=== PATIENT | male | born 1985 | race Caucasian/White ===

== ENCOUNTER 2019-01-22 14:42 | Emergency (ER) | payer OTHER ==
[~2019-01-22] VITALS: Ht 172.7 cm; Wt 72.6 kg
[~2019-01-22 14:42] MED LIST changes: -Esgic Tablet1 EACH PO; -Kristalose20 GM PO; -Lotensin40 MG PO; -Novolog100 UNIT/2 SC; -Roxicodone5 MG PO; -ULTRA-LIGHT RO1 EACH MC; -Zofran8 MG PO
[2019-01-22] MEDS ORDERED: Novolog100 UNIT/2 SC (15:36)
[2019-01-22] MEDS ORDERED: Lotensin40 MG PO (15:37)
[2019-01-22] MEDS ORDERED: Esgic Tablet1 EACH PO (15:39)
[2019-01-22] MEDS ORDERED: ULTRA-LIGHT RO1 EACH MC (16:37)
[2019-01-22] MEDS ORDERED: Roxicodone5 MG PO (16:37)
[2019-01-22] MEDS ORDERED: Kristalose20 GM PO (16:37)
[2019-01-22] MEDS ORDERED: Zofran8 MG PO (16:56)
== END 2019-01-22 16:59 | disposition home or self-care (01) ==
LOC: ER 14:42
DX: S32.592A Other specified fracture of left pubis, initial encounter for closed fracture (principal); V49.9XXA Car occupant (driver) (passenger) injured in unspecified traffic accident, initial encounter; E11.9 Type 2 diabetes mellitus without complications; Z79.4 Long term (current) use of insulin; Z79.899 Other long term (current) drug therapy
CPT/HCPCS: 96374; 96375; 99283-25; J1170; J2405

== ENCOUNTER → 2019-01-22 | Outpatient (CLI) | payer OTHER ==
[~2019-01-22] MED LIST: ACET325 PO; ATOR80; Esgic Tablet1 EACH PO; HYDACE10B; IBUP600 PO; IBUP800 PO; INSDET100 SC; INSDET100 SQ; INSLI100I; INSLI100I SC; INSLIS75I SC; INSN100I; INSUASPI; INSULIN ISOPHANE; KRILL OIL500 MG; Kristalose20 GM PO; LOSA25; Lotensin40 MG PO; Novolog100 UNIT/2 SC; OXYACE5T PO; PENVK500; Roxicodone5 MG PO; ULTRA-LIGHT RO1 EACH MC; Zofran8 MG PO
[2019-01-22 13:38] LABS: BASOPHILS ABSOLUTE AUTO 0.02 K/mm3 (0.00-0.23); BASOPHILS PERCENT AUTO 0 % (0-2); EOSINOPHILS ABSOLUTE AUTO 0.05 K/mm3 (0.00-0.68); EOSINOPHILS PERCENT AUTO 1 % (0-6); Hematocrit 30.6 % (37.0-53.0); IMMATURE GRAN ABSOLUTE AUTO 0.13 K/mm3 (0.00-0.10); IMMATURE GRAN PERCENT AUTO 1 % (0-1); LYMPHOCYTES ABSOLUTE AUTO 1.18 K/mm3 (0.84-5.20); LYMPHOCYTES PERCENT AUTO 13 % (21-46); MONOCYTES ABSOLUTE AUTO 0.47 K/mm3 (0.16-1.47); MONOCYTES PERCENT AUTO 5 % (4-13); Mean Corpuscular HGB 31.5 pg (26.0-34.0); Mean Corpuscular HGB Conc 35.9 g/dL (31.5-36.5); Mean Corpuscular Volume 88 fL (80-100); Mean Platelet Volume 10.5 fL (9.1-12.4); NEUTROPHILS ABSOLUTE AUTO 7.41 K/mm3 (1.96-9.15); NEUTROPHILS PERCENT AUTO 80 % (41-73); Platelet Count 220 K/mm3 (150-400); RDW Standard Deviation 38.5 fL (35.1-46.3); Red Blood Cell Count 3.49 M/mm3 (4.30-5.90); White Blood Cell Count 9.26 K/mm3 (4.00-11.30)
[2019-01-22 13:52] LABS: Albumin, Blood 3.5 g/dL (3.4-5.0); Albumin/Globulin Ratio 0.9 (0.8-1.8); Bilirubin, Total 0.3 mg/dL (0.1-1.0); Bun/Creatinine Ratio 12.9 (12.0-20.0); Calcium, Blood 8.5 mg/dL (8.5-10.1); Creatinine, Blood 1.71 mg/dL (0.60-1.20); Globulin, Blood 3.8 g/dL (2.2-4.0); Potassium, Blood 4.7 mmol/L (3.5-5.5); Total Protein, Blood 7.3 g/dL (6.4-8.2)
== END | disposition home or self-care (01) ==
LOC: LAB SHORT 13:33 → LAB EV 13:33
PROVIDERS: General Practice
DX: E10.9 Type 1 diabetes mellitus without complications (principal)
CPT/HCPCS: 80053; 85025

== ENCOUNTER 2022-07-30 09:17 | Day surgery (SDC) | payer BC ==
[~2022-07-30] VITALS: Ht 172.7 cm; Wt 79.0 kg
[~2022-07-30 09:17] MED LIST changes: +Esgic Tablet1 EACH PO; +Kristalose20 GM PO; +Lotensin40 MG PO; +Novolog100 UNIT/2 SC; +Roxicodone5 MG PO; +ULTRA-LIGHT RO1 EACH MC; +Zofran8 MG PO
[2022-07-30] MEDS ORDERED: AMIT25 PO (09:50)
[2022-07-30] MEDS ORDERED: ALEN70 PO (09:50)
[2022-07-30] MEDS ORDERED: ALLO100 PO (09:50)
[2022-07-30] MEDS ORDERED: EXTRA PAIN REL1 EAC2 PO (09:51)
[2022-07-30] MEDS ORDERED: ATOR20 PO (09:51)
[2022-07-30] MEDS ORDERED: METO50ER PO (09:52)
[2022-07-30] MEDS ORDERED: CALC.25 PO (09:52)
[2022-07-30] MEDS ORDERED: Vitamin D1000 UNI1 PO (09:52)
[2022-07-30] MEDS ORDERED: SILD25T PO (09:52)
--- NOTE | 2022-07-30 14:31 | NUR ---
PT UP TO BR, STATES FEELS GOOD. DISCHARGE REVIEWED WITH PT AND S.O., BOTH VERBALIZE UNDERSTANDING. SALINE LOCK REMOVED WITH CATHETER INTACT. DENIES ANY FURTHER QUESTIONS. PT TO PRIVATE VEHICLE PER W/C WITH ONE STAFF.
== END 2022-07-30 14:30 | disposition home or self-care (01) ==
LOC: MHTC 09:17
DX: I12.0 Hypertensive chronic kidney disease with stage 5 chronic kidney disease or end stage renal disease (principal); N18.6 End stage renal disease; E10.22 Type 1 diabetes mellitus with diabetic chronic kidney disease; Z79.4 Long term (current) use of insulin; E78.5 Hyperlipidemia, unspecified
CPT/HCPCS: 49418; 76937; 93005; 93010; 99152; 99153; C1750; C1769; C1887; C1894; J0690; J1644; J2250; J3010; J7030; J7040; Q9967

== ENCOUNTER → 2023-01-27 | Outpatient (CLI) | payer BC ==
[~2023-01-27] MED LIST changes: +ALEN70 PO; +ALLO100 PO; +AMIT25 PO; +AMLO5 PO; +ATOR20 PO; +BENAZEPRIL HCL40 M1 PO; +CALC.25 PO; +EXTRA PAIN REL1 EAC2 PO; +Lasix40 MG PO; +METO50ER PO; +Rena-Vite Tabl0.8 MG PO; +SILD25T PO; +Vitamin D1000 UNI1 PO
[2023-01-29 09:12] LABS: C DIFFICILE DNA POSITIVE (Negative)
== END ==
LOC: LAB 11:17 → LAB SHORT 11:17
PROVIDERS: Family Medicine
DX: R19.7 Diarrhea, unspecified (principal)
CPT/HCPCS: 87324; 87493

== ENCOUNTER → 2023-01-27 | Outpatient (CLI) | payer BC ==
[~2023-01-27] MED LIST changes: +COLCHICINE0.6 MG PO; +LOSA50 PO
== END | disposition home or self-care (01) ==
LOC: LAB 19:15 → LAB SHORT 19:15
DX: R50.9 Fever, unspecified (principal)
CPT/HCPCS: 87040

== ENCOUNTER 2023-01-28 17:49 | Inpatient (IN) | payer BC ==
[~2023-01-28] VITALS: Ht 172.7 cm; Wt 84.5 kg
[~2023-01-28 17:49] MED LIST changes: -AMLO5 PO; -BENAZEPRIL HCL40 M1 PO; -COLCHICINE0.6 MG PO; -LOSA50 PO; -Lasix40 MG PO; -Rena-Vite Tabl0.8 MG PO
[2023-01-28 18:06] VITALS: BP 138/78
[2023-01-28] MEDS ORDERED: AMLO5 PO (18:19)
[2023-01-28] MEDS ORDERED: Rena-Vite Tabl0.8 MG PO (18:19)
[2023-01-28] MEDS ORDERED: BENAZEPRIL HCL40 M1 PO (18:19)
[2023-01-28] MEDS ORDERED: Lasix40 MG PO (18:21)
[2023-01-28 19:53] LABS: BASOPHILS ABSOLUTE AUTO 0.05 K/mm3 (0.00-0.23); BASOPHILS PERCENT AUTO 0 % (0-2); EOSINOPHILS ABSOLUTE AUTO 0.34 K/mm3 (0.00-0.68); EOSINOPHILS PERCENT AUTO 2 % (0-6); Hematocrit 22.8 % (37.0-53.0); Hemoglobin 7.8 g/dL (13.5-17.5); IMMATURE GRAN ABSOLUTE AUTO 0.13 K/mm3 (0.00-0.10); IMMATURE GRAN PERCENT AUTO 1 % (0-1); LYMPHOCYTES ABSOLUTE AUTO 1.44 K/mm3 (0.84-5.20); LYMPHOCYTES PERCENT AUTO 9 % (21-46); MONOCYTES ABSOLUTE AUTO 1.02 K/mm3 (0.16-1.47); MONOCYTES PERCENT AUTO 6 % (4-13); Mean Corpuscular HGB 31.5 pg (26.0-34.0); Mean Corpuscular HGB Conc 34.2 g/dL (31.5-36.5); Mean Corpuscular Volume 92 fL (80-100); NEUTROPHILS PERCENT AUTO 82 % (41-73); Platelet Count 428 K/mm3 (150-400); RDW Coefficient Variation 11.9 % (11.7-14.2); RDW Standard Deviation 40.2 fL (35.1-46.3); Red Blood Cell Count 2.48 M/mm3 (4.30-5.90); White Blood Cell Count 16.88 K/mm3 (4.00-11.30)
[2023-01-28 20:02] VITALS: BP 148/83
[2023-01-28 21:04] LABS: Albumin, Blood 2.2 g/dL (3.4-5.0); Albumin/Globulin Ratio 0.4 (0.8-1.8); Bilirubin, Total 0.5 mg/dL (0.1-1.0); Calcium, Blood 8.3 mg/dL (8.5-10.1); Globulin, Blood 5.3 g/dL (2.2-4.0); Potassium, Blood 2.8 mmol/L (3.5-5.5); Total Protein, Blood 7.5 g/dL (6.4-8.2)
[2023-01-28 21:05] LABS: Bun/Creatinine Ratio 5.8 (12.0-20.0)
[2023-01-29] VITALS (10 sets, daily range): BP systolic 133–156; BP diastolic 80–97
[2023-01-29 05:35] LABS: BASOPHILS ABSOLUTE AUTO 0.04 K/mm3 (0.00-0.23); BASOPHILS PERCENT AUTO 0 % (0-2); EOSINOPHILS ABSOLUTE AUTO 0.34 K/mm3 (0.00-0.68); EOSINOPHILS PERCENT AUTO 2 % (0-6); Hematocrit 18.8 % (37.0-53.0); Hemoglobin 6.4 g/dL (13.5-17.5); IMMATURE GRAN ABSOLUTE AUTO 0.12 K/mm3 (0.00-0.10); IMMATURE GRAN PERCENT AUTO 1 % (0-1); LYMPHOCYTES ABSOLUTE AUTO 1.35 K/mm3 (0.84-5.20); LYMPHOCYTES PERCENT AUTO 9 % (21-46); MONOCYTES ABSOLUTE AUTO 0.87 K/mm3 (0.16-1.47); MONOCYTES PERCENT AUTO 6 % (4-13); Mean Corpuscular HGB 31.5 pg (26.0-34.0); Mean Corpuscular Volume 93 fL (80-100); NEUTROPHILS ABSOLUTE AUTO 12.65 K/mm3 (1.96-9.15); NEUTROPHILS PERCENT AUTO 82 % (41-73); Platelet Count 399 K/mm3 (150-400); RDW Coefficient Variation 11.9 % (11.7-14.2); RDW Standard Deviation 40.4 fL (35.1-46.3); Red Blood Cell Count 2.03 M/mm3 (4.30-5.90); White Blood Cell Count 15.37 K/mm3 (4.00-11.30)
[2023-01-29 06:15] LABS: Albumin, Blood 1.9 g/dL (3.4-5.0); Albumin/Globulin Ratio 0.4 (0.8-1.8); Bilirubin, Total 0.4 mg/dL (0.1-1.0); Calcium, Blood 7.9 mg/dL (8.5-10.1); Globulin, Blood 4.5 g/dL (2.2-4.0); Potassium, Blood 3.3 mmol/L (3.5-5.5); Total Protein, Blood 6.4 g/dL (6.4-8.2)
[2023-01-29 06:18] LABS: Bun/Creatinine Ratio 5.6 (12.0-20.0); Creatinine, Blood 13.2 mg/dL (0.60-1.20)
--- NOTE | 2023-01-29 18:24 | NUR ---
PD RN TO PT ROOM [id number] AT APPROX 1730 TO CONNECT PT TO NIGHT CCPD TREATMENT. THERAPY TIME: 11:00 HRS FILL: 1500 LAST FILL:500 CYCLES:6 DWELL:90 MIN 1-6L 4.25 1-6L 2.5
[2023-01-29 21:25] LABS: Glucose, Blood 544 mg/dL (70-99)
[2023-01-30 03:59] VITALS: BP 146/82
--- NOTE | 2023-01-30 04:26 | NUR ---
SHIFT SUMMERY. PTS CBGS HAVE BEEN HIGH BUT HE IS NOT WANTING TO USE S/S INSULIN. ONLY WANATING TO USE HIS INSULIN PUMP TO BRING DOWN. CBGS HAVE BEEN COMM ING DOWN BUT VERY SLOWLY. PT ON PERITONIEAL DIALISIS THIS NIGHT. PT APPEARS TO BE VERY TIRED AND SLEEPY. PT HAS NOT HAD A LONG UNINTERUPTED TIME TO SLEEP IN THE HOSPITAL.
[2023-01-30 05:20] LABS: BASOPHILS ABSOLUTE AUTO 0.04 K/mm3 (0.00-0.23); BASOPHILS PERCENT AUTO 0 % (0-2); EOSINOPHILS ABSOLUTE AUTO 0.28 K/mm3 (0.00-0.68); EOSINOPHILS PERCENT AUTO 2 % (0-6); Hematocrit 26.1 % (37.0-53.0); IMMATURE GRAN ABSOLUTE AUTO 0.15 K/mm3 (0.00-0.10); IMMATURE GRAN PERCENT AUTO 1 % (0-1); LYMPHOCYTES ABSOLUTE AUTO 0.91 K/mm3 (0.84-5.20); LYMPHOCYTES PERCENT AUTO 6 % (21-46); MONOCYTES ABSOLUTE AUTO 0.68 K/mm3 (0.16-1.47); MONOCYTES PERCENT AUTO 5 % (4-13); Mean Corpuscular HGB 31.5 pg (26.0-34.0); Mean Corpuscular HGB Conc 34.5 g/dL (31.5-36.5); Mean Corpuscular Volume 91 fL (80-100); Mean Platelet Volume 11.2 fL (9.1-12.4); NEUTROPHILS ABSOLUTE AUTO 12.44 K/mm3 (1.96-9.15); NEUTROPHILS PERCENT AUTO 86 % (41-73); Platelet Count 468 K/mm3 (150-400); RDW Standard Deviation 40.1 fL (35.1-46.3); Red Blood Cell Count 2.86 M/mm3 (4.30-5.90)
[2023-01-30 06:24] LABS: CPK Creatine Kinase 127 U/L (39-308); Ferritin, Serum 804 ng/mL (26-388); Iron Serum 28 ug/dL (65-175); Percent Saturation 16.1 % (20.0-50.0); Total Iron Binding Capacity 174 ug/dL (250-450)
[2023-01-30 06:45] LABS: Albumin, Blood 2.1 g/dL (3.4-5.0); Anion Gap 12 mmol/L (6-16); Blood Urea Nitrogen 69 mg/dL (8-24); Bun/Creatinine Ratio 5.5 (12.0-20.0); CO2, Blood 25 mmol/L (21-32); Calcium, Blood 8.6 mg/dL (8.5-10.1); Chloride, Blood 92 mmol/L (98-108); Glomerular Filtration Rate 5 (60-); Glucose, Blood 463 mg/dL (70-99); Phosphorus, Blood 6.3 mg/dL (2.5-4.9); Potassium, Blood 3.3 mmol/L (3.5-5.5); Sodium, Blood 129 mmol/L (136-145)
[2023-01-30 08:22] VITALS: BP 161/90
--- NOTE | 2023-01-30 13:44 | NUR ---
6928 ASSUMED CARE OF PATIENT. PROGRAM EVALUATION CONSULTANT AT BEDSIDE SETTING UP PATIENTS PERITONEAL DIALYSIS. PT REPORTS THAT HE IS FEELING MUCH BETTER THAN HE DID YESTERDAY. PER WELDING MACHINE OPERATOR/TENDER MONITOR SHOW SR WITH HR OF 84
--- NOTE | 2023-01-30 14:35 | NUR ---
DIALYSIS-PD WENT TO ROOM TO DC TX. PT HAD ALREADY DISCONNECT HIMSELF. ID 6 ML, UF [id number] ML. FLUID CLEAR.
--- NOTE | 2023-01-30 16:01 | NUR ---
SPOKE WITH DR KWONG VIA PHONE TO DISCUSS BLOOD SUGAR OF 446. NO NEW ORDERS AT THIS TIME. DISCUSSED WITH DR KWONG OUTPATIENT C DIFF WITH A NEGATIVE TOX A/B ON 01/27/23.PT AND PATIENTS ASKING IF C DIFF NEEDS ANY FURTHER TREATMENT. PER DR KWONG NO NEW ORDERS NEEDED REGARDING C DIFF RESULTS.
[2023-01-30 18:11] LABS: ANA DIRECT Negative (Negative); ANTI-DNA (DS) AB QN <1 IU/mL (0-9); RNP ANTIBODIES <0.2 AI (0.0-0.9); SJOGREN'S ANTI-SS-A <0.2 AI (0.0-0.9); SJOGREN'S ANTI-SS-B <0.2 AI (0.0-0.9); SMITH ANTIBODIES <0.2 AI (0.0-0.9)
--- NOTE | 2023-01-30 18:29 | NUR ---
PT A&OX4, ANSWERS QUESTIONS APPROPRIATELY. CBGS CONTINUE TO RUN HIGH (300-400S), DOCTOR NOTIFIED AND CHANGED TO BLOOD SUGAR CHECKS TO Q4. GLARGINE ANG HUMALOG GIVEN AT 1130 AND HUMALOG CONTINUES TO BE GIVEN EVERY 4 HOURS. PT REPORTED CHEST PAIN OF 8/10 UPON INHALATION, DR NOTIFIED AND A SMALL DOSE OF OXYCODONE AND 650MG TYELONOL GIVEN. DOCTOR NOTIFIED NURSE AND PT THE PLAN IS TO DISCHARGE TOMORROW LONG THE PTS BLOOD SUGARS ARE CONTROLLED. WILL CONTINUE PLAN OF CARE.
--- NOTE | 2023-01-30 20:35 | NUR ---
PD RN TO PT ROOM AT APPROX 1600 TO DISCONECT CCPD NIGHT TREATMENT, STIRP AND CLEAN THE MACHINE AND THEN SET IT BACK UP AND PRIME THE MACHINE FOR CCPD NIGHT TREATMENT. MACHINE PRIMED AND READY AT APRROX 1700, PT IN SHOWER SO RETURNED AT 1745 TO CONNECT PT TO CCPD NIGHT TREATMENT.
[2023-01-30 20:46] VITALS: BP 151/88
[2023-01-30 20:50] LABS: Glucose, Blood 642 mg/dL (70-99)
[2023-01-30 23:13] LABS: Glucose, Blood 732 mg/dL (70-99)
[2023-01-30 23:46] LABS: Anion Gap 17 mmol/L (6-16); Blood Urea Nitrogen 69 mg/dL (8-24); Bun/Creatinine Ratio 5.8 (12.0-20.0); CO2, Blood 21 mmol/L (21-32); Calcium, Blood 7.9 mg/dL (8.5-10.1); Chloride, Blood 88 mmol/L (98-108); Glomerular Filtration Rate 5 (60-); Potassium, Blood 3.2 mmol/L (3.5-5.5); Sodium, Blood 126 mmol/L (136-145)
[2023-01-31] VITALS (24 sets, daily range): BP systolic 122–170; BP diastolic 75–110
--- NOTE | 2023-01-31 01:04 | NUR ---
PD RN TO PT ROOM AT APPROX 0010 TO DISCONNECT TREATMENT. PT WAS TRANSFERED FROM [place] [id number] TO [id number] AT APPROX 0030 AND IS NOW UNDER THE CARE OF FRAMING MILL OPERATOR LIDIA AVALOS. THE TOTAL FILL VOLUME: 135ML, TOTAL UF: -203, I-DRAIN: 291ML, AVERAGE DWELL 1:21. WHEN I ENTERED THE ROOM TO DISCONNECT TREATMENT WAS ON FILL [address] HARP NOTIFIED AND GAVE VERBAL ORDERS TO DISCONTINUE TREATMENT FOR THE NIGHT AND RESTART WITH TOMMOROWS NIGHTLY TREATMENT.
[2023-01-31 01:38] LABS: Glucose, Blood 739 mg/dL (70-99)
[2023-01-31 02:34] LABS: Glucose, Blood 696 mg/dL (70-99)
[2023-01-31 03:33] LABS: BASOPHILS ABSOLUTE AUTO 0.06 K/mm3 (0.00-0.23); BASOPHILS PERCENT AUTO 1 % (0-2); EOSINOPHILS ABSOLUTE AUTO 0.22 K/mm3 (0.00-0.68); EOSINOPHILS PERCENT AUTO 2 % (0-6); Hematocrit 22.6 % (37.0-53.0); Hemoglobin 7.8 g/dL (13.5-17.5); IMMATURE GRAN ABSOLUTE AUTO 0.12 K/mm3 (0.00-0.10); IMMATURE GRAN PERCENT AUTO 1 % (0-1); LYMPHOCYTES ABSOLUTE AUTO 0.92 K/mm3 (0.84-5.20); LYMPHOCYTES PERCENT AUTO 8 % (21-46); MONOCYTES ABSOLUTE AUTO 0.75 K/mm3 (0.16-1.47); MONOCYTES PERCENT AUTO 7 % (4-13); Mean Corpuscular HGB 31.2 pg (26.0-34.0); Mean Corpuscular HGB Conc 34.5 g/dL (31.5-36.5); Mean Corpuscular Volume 90 fL (80-100); NEUTROPHILS ABSOLUTE AUTO 8.88 K/mm3 (1.96-9.15); NEUTROPHILS PERCENT AUTO 81 % (41-73); Platelet Count 416 K/mm3 (150-400); RDW Standard Deviation 39.4 fL (35.1-46.3); White Blood Cell Count 10.95 K/mm3 (4.00-11.30)
[2023-01-31 04:14] LABS: Albumin, Blood 1.8 g/dL (3.4-5.0); Anion Gap 12 mmol/L (6-16); Blood Urea Nitrogen 70 mg/dL (8-24); Bun/Creatinine Ratio 5.7 (12.0-20.0); CO2, Blood 25 mmol/L (21-32); Calcium, Blood 7.3 mg/dL (8.5-10.1); Chloride, Blood 90 mmol/L (98-108); Glomerular Filtration Rate 5 (60-); Glucose, Blood 619 mg/dL (70-99); Phosphorus, Blood 5.5 mg/dL (2.5-4.9); Potassium, Blood 3.2 mmol/L (3.5-5.5); Sodium, Blood 127 mmol/L (136-145)
[2023-01-31 05:03] LABS: Glucose, Blood 577 mg/dL (70-99)
--- NOTE | 2023-01-31 05:28 | NUR ---
UPDATE CALLED DR SHAH ABOUT AM LABS, NO NEW ORDERS AT THIS TIME.
--- NOTE | 2023-01-31 05:28 | NUR ---
SHIFT SUMMARY PT HAS BEEN RESTING QUIETLY SINCE TRANSFER. NO NEW COMPLAINTS OF PAIN, SOB, OR NAUSEA FROM PT. INSULIN GTT TITRATED T/O NIGHT. SPO2 >92% ON RA;MAP <65; NSR.
[2023-01-31 09:12] LABS: Bun/Creatinine Ratio 5.8 (12.0-20.0); Creatinine, Blood 12.4 mg/dL (0.60-1.20); Potassium, Blood 3.1 mmol/L (3.5-5.5)
--- NOTE | 2023-01-31 11:44 | NUR ---
REASSESSMENT PT HAS BEEN RESTING IN BED OR IN THE CHAIR THROUGHOUT THE MORNING. INSULIN GTT INFUSING AT 4 UN/HR AND HAS NOT NEEDED TITRATION GLUCOSE IS DECREASING AT AN APPROPRIATE RATE. DR. CORTEZ EVALUATED PT AT THE BEDSIDE AND PLAN IS TO START LONG ACTING INSULIN WELL SOME CARB COVERAGE. PT'S IS ALERT AND ORIENTED. RESPONSES WERE A LITTLE DELAYED THIS MORNING, BUT AFTER BREAKFAST PT HAS BEEN QUICKER TO RESPOND. SR, BP STABLE. RA, CLEAR LUNGS, VOIDING INDEPENDENTLY. CONTINUING TO MONITOR.
[2023-01-31 13:00] LABS: Bun/Creatinine Ratio 5.8 (12.0-20.0); Calcium, Blood 7.9 mg/dL (8.5-10.1); Creatinine, Blood 12.5 mg/dL (0.60-1.20); Potassium, Blood 3.1 mmol/L (3.5-5.5)
--- NOTE | 2023-01-31 17:00 | NUR ---
PD RN TO PT RM ICU13 AT APPRX 1615 TO CONENCT CCPD NIGHT TX. BEDSIDE RN SUSHIL WAS IN ROOM AND SO WAS CONTROLS DESIGNER DR. HARP. THEY WERE DISCUSSING THE PLAN GOING FOREWARD WITH THE PT AND HIS . PT SITTING IN CHAIR AT BEDSIDE. DISCUSSION OF POSSIBLE DOWNGRADING TO MED FLOOR STATUS AND A POTENTIAL TRANSFER TO MED FLOOR. I DISCUSSED THE POSSIBLITY WITH THE BEDSIDE RN SUSHIL AND SHE SAID THAT THERE ARE NO SURRENT PLANS TO MOVE HIM JUST YET AND THAT THEY ARE NOT IN NEED OF THE BED/ROOM AT THE MOMENT SO THEY MAY BE ABLE TO KEEP HIM HERE OVER NIGHT. WITH HIS HIGH CBG AND LOW K+ LABS THIS MAY BE A GOOD OPTION IT IS. MACHINE HOOKED UP AND FINISHING PRIMING AT 1645. PT CONNECTED TO TREATMENT AT 1700 AND INITIAL DRAIN STARTED. STICKING AROUND TO ENSURE INITIAL DRAIN COMPLETES AND FILL STARTS WITH NO ALARMS.
--- NOTE | 2023-01-31 17:31 | NUR ---
SHIFT SUMMARY PT WAS TITRATED OFF THE INSULIN GTT THIS AFTERNOON AFTER RECEIVING LONG ACTING INSULIN. HE IS EATING DINNER CURRENTLY AND DIALYSIS NURSE CONNECTED HIM TO HIS PD. DR. HARP CAME BY AND SPOKE WITH PT AND HIS . PT HAS REMAINED ALERT AND ORIENTED. LUNGS ARE CLEAR, RA, SR, BP STABLE. GETTING UP TO BR WITH JUST LINE MANAGEMENT. CONTINUING TO MONITOR.
--- NOTE | 2023-01-31 20:11 | NUR ---
PATIENT SLEEPING IN RECLINER CHAIR, AWAKENS TO SLIGHT STIMULI. A&O X3, REQUESTING TO STAY IN CHAIR AT THIS TIME. PD CONNECTED AND RUNNING. INSULIN DRIP REMAINS OFF AT THIS TIME. PATIENTS S/O (RASHEDE) AT BEDSIDE PROVIDING GOOD SUPPORT.
--- NOTE | 2023-01-31 21:05 | NUR ---
LIDIA CHAR FILTER TANK TENDER NOTIFIED OF INCREASED GLUCOSE THIS EVENING. COVERED WITH LOW SLIDING SCALE PER ORDER AND WILL RECHECK IN 1 HR TO SEE IF IT CONTINUES TO RISE.
--- NOTE | 2023-01-31 22:11 | NUR ---
LIDIA ASSISTANT CASE MANAGER NOTIFIED OF GLUCOSE 449. ONE TIME DOSE OF REG INSULIN 6 UNITS IV X1 THEN RECHECK GLUCOSE AT 0100
[2023-02-01] VITALS (16 sets, daily range): BP systolic 103–153; BP diastolic 74–100
[2023-02-01 01:33] LABS: Glucose, Blood 545 mg/dL (70-99)
--- NOTE | 2023-02-01 01:38 | NUR ---
DOCTOR ALYSSA NOTIFIED OF REPEAT GLUCOSE OF 545 PER LAB DRAW. RESTART INSULIN DRIP UNTIL GLUCOSE LESS THAN 150
[2023-02-01 03:15] LABS: Hematocrit 25.4 % (37.0-53.0); Hemoglobin 8.7 g/dL (13.5-17.5); Mean Corpuscular HGB 31.6 pg (26.0-34.0); Mean Corpuscular HGB Conc 34.3 g/dL (31.5-36.5); Mean Corpuscular Volume 92 fL (80-100); Mean Platelet Volume 10.8 fL (9.1-12.4); Platelet Count 452 K/mm3 (150-400); RDW Coefficient Variation 12.2 % (11.7-14.2); RDW Standard Deviation 40.7 fL (35.1-46.3); Red Blood Cell Count 2.75 M/mm3 (4.30-5.90); White Blood Cell Count 9.72 K/mm3 (4.00-11.30)
[2023-02-01 03:47] LABS: Albumin, Blood 1.9 g/dL (3.4-5.0); Anion Gap 13 mmol/L (6-16); Blood Urea Nitrogen 68 mg/dL (8-24); Bun/Creatinine Ratio 5.6 (12.0-20.0); CO2, Blood 24 mmol/L (21-32); Calcium, Blood 7.6 mg/dL (8.5-10.1); Chloride, Blood 94 mmol/L (98-108); Glomerular Filtration Rate 5 (60-); Glucose, Blood 596 mg/dL (70-99); Phosphorus, Blood 5.5 mg/dL (2.5-4.9); Potassium, Blood 3.2 mmol/L (3.5-5.5); Sodium, Blood 131 mmol/L (136-145)
--- NOTE | 2023-02-01 05:00 | NUR ---
DOCTOR LOYD NOTIFIED OF K+ LEVEL THIS AM AND THAT DUE TO GLUCOSE OVER 500 RESTARTING INSULIN DRIP. PLAN TO HAVE SCHEDULED PO KCL NO NEED FOR ADDITIONAL KCL AT THIS TIME
--- NOTE | 2023-02-01 05:46 | NUR ---
SUMMARY PATIENT SLEEPING IN RECLINER CHAIR T/O NIGHT. AWAKENS EASILY, APPEARS TO FALL BACK TO SLEEP WHEN UNDISTURBED. PERITONEAL DIALYSIS RUNNING T/O NIGHT. INSULIN DRIP RESTARTED DUE TO GLUCOSE ABOVE 500 AND RISING. CURRENTLY AT 8 UNITS/HR. VSS T/O NIGHT. NO C/O CHEST PAIN AT THIS TIME
--- NOTE | 2023-02-01 07:00 | NUR ---
ASSUME CARE: I have assumed care of this patient.
--- NOTE | 2023-02-01 08:45 | NUR ---
DIALYSIS NOTE CCPD TX COMPLETED PRESCRIBED. IDRAIN 10, TUF 679, AVG DWELL 1:28. PT REPORTS HE TOLERATED WELL, NO ALARMS DURING NIGHT. DRSG CHANGE COMPLETED. EXIT SITE PERFECT CLASSIFICATION. TRANSFER SET CLOSED, CAPED AND SECURED.
--- NOTE | 2023-02-01 14:02 | NUR ---
PROVIDER UPDATE: Dr Ojeda called and updated on pt status. She instructs pt to turn up Dexcom to 1.2 units. RN visualized pt changing Dexcom device. Telephone order for status change.
--- NOTE | 2023-02-01 16:14 | NUR ---
DEXCOM: Pt states he believes his Dexcom delivery patch is "not right". He has changed patch.
[2023-02-01 18:08] LABS: ANTIMYELOPEROXIDASE (MPO) ABS <0.2 units (0.0-0.9); ANTIPROTEINASE 3 (PR-3) ABS <0.2 units (0.0-0.9); ATYPICAL PANCA <1:20 titer (Neg:<1:20); CYTOPLASMIC (C-ANCA) <1:20 titer (Neg:<1:20); PERINUCLEAR (P-ANCA) <1:20 titer (Neg:<1:20)
--- NOTE | 2023-02-01 18:13 | NUR ---
SHIFT/TRANSFER SUMMARY: Pt up independantly today. He was transitioned from insulin drip to his DEXCOM. After replacing sensor his blood sugar responded well. Pt denies any complaints of pain. Voiding independantly. He declined a shower this afternoon.
--- NOTE | 2023-02-01 19:08 | NUR ---
pf rn to pt rm icu 13 to collect cycler machine at approx 1800. Pt transfered to pcu16 and cycler macine set up at bedside. photoengraving machine operator/tender and ready to connect at 1900. pt conencted per protocol and orders.
--- NOTE | 2023-02-01 22:33 | NUR ---
UPDATE PT 1999 CBG 442; THIS RN NOTIFIED RESIDENT. NEW ORDERS FOR MEDIUM SLIDING SCALE. COVERAGE PROVIDED. PT DENIES SIGNS AND SX. PT A&0. NO CHANGES TO PT CONDITION. 2199 CBG > 500; HOSPITALIST NOTIFIED BY INJECTION MOLDING MACHINE TENDER. NEW ORDERS FOR HIGH SLIDING SCALE, 25 U OF LANTUS NOW, AND CONTINUATION OF Q2 CBG CHECKS W/Q4 COVERAGE INDICATED UNTIL CBG <250 AFTER CBG <250 PROVIDE ACHS COVERAGE.
[2023-02-01 22:54] LABS: Glucose, Blood 613 mg/dL (70-99)
[2023-02-02] VITALS (9 sets, daily range): BP systolic 101–134; BP diastolic 58–80
[2023-02-02 00:26] LABS: Glucose, Blood 554 mg/dL (70-99)
--- NOTE | 2023-02-02 01:26 | NUR ---
pd rn to pt rm pcu 16 at approx 0030am to disconnect ccpd night treatment. receieved a call at approx 0011am that this pt was being transfered to icu 09 due to uncontrolled cbg. pt disconnected per protocol and cycler cmachine stripped downa nd cleaned. contacted Dr. Carrion at approx 1300 am to see what he wanted to be done and I was informed that we could call it a night and restart with tomorrow evenings treatment. total uf was 138ml and total idrain was 152 ml. time of disconnect was 0030am.
--- NOTE | 2023-02-02 01:33 | NUR ---
SUMMARY AND TRANSFER NOTE PT REMAINS A&O X4. VSS. PT UP IN ROOM AND ANSWERING QUESTIONS APPROPRIATELY. CBG'S HIGH AND CONTINUED TO INCREASE; SEE PREVIOUS NURSING NOTES. INSULIN ADMINSTERED PER EMAR AND PER NEW ORDERS FROM HOSPITALIST. CBG REMAINED ELEVATED, PROVIDER NOTIFIED. NEW ORDERS FOR TRANSFER TO ICU. NO CHANGES IN PT CONDITION W/ELEVATED CBG. PT ONLY REPORTS "HAVING A DRY MOUTH" AND SLIGHT DECREASE IN VOIDING. PT REPORTS 1 VOID DURING THIS SHIFT. PT ON PD AT BEDSIDE; BEFORE TRANSFER DIALYSIS NURSE NOTIFIED AND IN TO DISCONNECT PT. PT GATHERED PERSONAL BELONGINGS AND ABLE TO SAFELY AMBULATE W/THIS RN TO ICU AROUND 0100. REPORT GIVEN TO ALISHA CHEEK.
--- NOTE | 2023-02-02 02:44 | NUR ---
BG CONTINUING TO DROP AFTER PD COMPLETED. DR SHAH NOTIFIED AND RN GIVEN ORDER TO STOP PATIENT'S BASAL RATE ON INSULIN PUMP.
[2023-02-02 03:52] LABS: Hematocrit 24.9 % (37.0-53.0); Hemoglobin 8.4 g/dL (13.5-17.5); Mean Corpuscular HGB 31.2 pg (26.0-34.0); Mean Corpuscular HGB Conc 33.7 g/dL (31.5-36.5); Mean Corpuscular Volume 93 fL (80-100); Mean Platelet Volume 10.7 fL (9.1-12.4); Platelet Count 460 K/mm3 (150-400); RDW Coefficient Variation 12.6 % (11.7-14.2); RDW Standard Deviation 41.2 fL (35.1-46.3); Red Blood Cell Count 2.69 M/mm3 (4.30-5.90); White Blood Cell Count 13.51 K/mm3 (4.00-11.30)
[2023-02-02 04:51] LABS: Albumin, Blood 1.9 g/dL (3.4-5.0); Anion Gap 11 mmol/L (6-16); Blood Urea Nitrogen 86 mg/dL (8-24); Bun/Creatinine Ratio 6.8 (12.0-20.0); CO2, Blood 22 mmol/L (21-32); Chloride, Blood 102 mmol/L (98-108); Glomerular Filtration Rate 5 (60-); Glucose, Blood 221 mg/dL (70-99); Potassium, Blood 3.7 mmol/L (3.5-5.5); Sodium, Blood 135 mmol/L (136-145)
--- NOTE | 2023-02-02 06:21 | NUR ---
PATIENT AOX4. FOLLOWS COMMANDS AND MOVES ALL EXTREMITIES. SR WITH STABLE BP. ROOM AIR. BG BEGAN TO DROP QUICKLY AFTER PATIENT TRANSFERRED TO ICU AND PD STOPPED. PATIENT HAD RECEIVED 25U LANTUS AND 15U HUMALOG PRIOR TO HAVING PD STOPPED. BG CHECKED HOURLY AND PATIENTS INSULIN PUMP TURNED OFF. BG STABILIZED BETWEEN 160-190.
--- NOTE | 2023-02-02 11:39 | NUR ---
SHIFT ASSESSMENT PT A&OX4. INDEPENDENT IN ROOM. VSS. GLUCOSE STABILIZED, TRANSITIONING PT TO DAILY HOME REGIMEN. PT NOW PCU STATUS, AWAITING A ROOM.
--- NOTE | 2023-02-02 18:03 | NUR ---
SHIFT SUMMARY PT REMAINS A&OX4. TOLERATING PO INTAKE WELL. GLUCOSE REMAINS <250 c PRANDIAL COVERAGE AND PTS HOME PUMP. PD DIALYSIS SCHEDULED FOR THIS EVENING. NO OTHER ACUTE CHANGES NOTED.
--- NOTE | 2023-02-02 19:25 | NUR ---
DIALYSIS: PD NOTE Patient is alert and oriented x4. Dialysis cycler set-up per orders using aseptic technique. Patient has no complaints of dyspnea or abdominaal pain. No edema noted. Patient to run 6 hrs with 5 exchanges of 1500 ml and a last fill of 500 ml. Dwell time of 52 mins. PD catheter dressing changed with no signs or symptoms of infection noted. Patient connected to cycler and treatment started and running without problems. Report given to primary RN.
[2023-02-03 00:03] VITALS: BP 150/87
[2023-02-03 03:24] VITALS: BP 117/90
[2023-02-03 03:53] LABS: Hematocrit 27.5 % (37.0-53.0); Hemoglobin 9.1 g/dL (13.5-17.5); Mean Corpuscular HGB 31.3 pg (26.0-34.0); Mean Corpuscular HGB Conc 33.1 g/dL (31.5-36.5); Mean Corpuscular Volume 95 fL (80-100); Mean Platelet Volume 10.8 fL (9.1-12.4); Platelet Count 477 K/mm3 (150-400); RDW Coefficient Variation 12.9 % (11.7-14.2); RDW Standard Deviation 43.5 fL (35.1-46.3); Red Blood Cell Count 2.91 M/mm3 (4.30-5.90); White Blood Cell Count 14.31 K/mm3 (4.00-11.30)
[2023-02-03 05:04] LABS: Anion Gap 11 mmol/L (6-16); Blood Urea Nitrogen 91 mg/dL (8-24); Bun/Creatinine Ratio 7.3 (12.0-20.0); CO2, Blood 22 mmol/L (21-32); Calcium, Blood 8.4 mg/dL (8.5-10.1); Chloride, Blood 103 mmol/L (98-108); Glomerular Filtration Rate 5 (60-); Glucose, Blood 141 mg/dL (70-99); Phosphorus, Blood 5.7 mg/dL (2.5-4.9); Potassium, Blood 3.7 mmol/L (3.5-5.5); Sodium, Blood 136 mmol/L (136-145)
--- NOTE | 2023-02-03 06:22 | NUR ---
PATIENT AOX4. SR WITH STABLE BP. ROOM AIR. ON PERITONEAL DIALYSIS OVERNIGHT, BG UNDER CONTROL WITH INSULIN PUMP.
[2023-02-03 08:07] VITALS: BP 107/64
--- NOTE | 2023-02-03 10:05 | NUR ---
DIALYSIS NOTE CCPD TX COMPLETED PRESCRIBED. IDRAIN 3, LAST MANUAL DRAIN 432, TUF NEGATIVE 132, AVG DWELL 50 MIN. PT REPORTS HE TOLERATED WELL, NO ALARMS DURING NIGHT. TRANSFER SET CLOSED, CAPED AND SECURED.
[2023-02-03] MEDS ORDERED: COLCHICINE0.6 MG PO (12:37)
[2023-02-03] MEDS ORDERED: LOSA50 PO (12:38)
--- NOTE | 2023-02-03 13:25 | NUR ---
DISCHARGE PT VERBALIZED UNDERSTANDING OF DISCHARGE INSTRUCTIONS AND FOLLOW UP APPOINTMENTS. IV DC'D. PT WALKED OUT OF THE ICU TO RIDE HOME AT 1320. ALL PT BELONGINGS TAKEN HOME WITH PT.
--- NOTE | 2023-02-04 00:54 | NUR ---
Late note 01/29/23 pt alert and oriented x 4, pts at bedside. lungs clear to acultation, bowel tones x 4. pt on peritoneal dialisis in his room pt has a insulin pump and prefers to use his pump to corrected CBGs . Skin intact pt able to ambulate independantly. at 01/2023 at 0650 am critical lab called for creatinin 12.[address] Parker. No new orders given.
== END 2023-02-03 13:20 | disposition home or self-care (01) | DRG 682 ==
LOC: MEDS 17:49 → ICUW 01-29 15:43 → MEDS 01-29 15:43 → ICUW 01-31 00:26 → PCU 02-01 18:43 → ICUW 02-01 23:50
PROVIDERS: Hospitalist; Internal Medicine; ADMIT Family Medicine
PROC: 30233N1 Transfusion of Nonautologous Red Blood Cells into Peripheral Vein, Percutaneous Approach (ICD-10-PCS; principal; 2023-01-29)
DX: I12.0 Hypertensive chronic kidney disease with stage 5 chronic kidney disease or end stage renal disease (principal); N18.6 End stage renal disease; D62 Acute posthemorrhagic anemia; I30.8 Other forms of acute pericarditis; E10.22 Type 1 diabetes mellitus with diabetic chronic kidney disease; E78.5 Hyperlipidemia, unspecified; J45.909 Unspecified asthma, uncomplicated; E10.3599 Type 1 diabetes mellitus with proliferative diabetic retinopathy without macular edema, unspecified eye; E10.40 Type 1 diabetes mellitus with diabetic neuropathy, unspecified; K75.9 Inflammatory liver disease, unspecified; F45.8 Other somatoform disorders; M81.0 Age-related osteoporosis without current pathological fracture; E10.65 Type 1 diabetes mellitus with hyperglycemia; G43.909 Migraine, unspecified, not intractable, without status migrainosus; E86.9 Volume depletion, unspecified; E87.6 Hypokalemia; D63.1 Anemia in chronic kidney disease; Z98.890 Other specified postprocedural states; Z98.49 Cataract extraction status, unspecified eye; Z99.2 Dependence on renal dialysis; Z96.41 Presence of insulin pump (external) (internal); Z88.8 Allergy status to other drugs, medicaments and biological substances; Z79.4 Long term (current) use of insulin; Z79.82 Long term (current) use of aspirin; Z79.899 Other long term (current) drug therapy
CPT/HCPCS: 36415; 36430; 80048; 80053; 80069; 82550; 82728; 82947; 83516; 83520; 83540; 83550; 84484; 85025; 85027; 86037; 86225; 86235; 86430; 86850; 86900; 86901; 86923; 87040; 93005; 93010; 93306; 96374; 96376; A9270; G0378; J1815; J2916; J3480; J7050; P9016; Q5106

== ENCOUNTER 2023-02-16 18:08 | Inpatient (IN) | payer BC ==
[~2023-02-16] VITALS: Ht 172.7 cm; Wt 82.6 kg
[~2023-02-16 18:08] MED LIST changes: +AMLO5 PO; +BENAZEPRIL HCL40 M1 PO; +COLCHICINE0.6 MG PO; +LOSA50 PO; +Lasix40 MG PO; +Rena-Vite Tabl0.8 MG PO
[2023-02-16 19:46] LABS: Albumin, Blood 1.8 g/dL (3.4-5.0); Albumin/Globulin Ratio 0.4 (0.8-1.8); Bilirubin, Total 0.7 mg/dL (0.1-1.0); Calcium, Blood 7.6 mg/dL (8.5-10.1); Creatinine, Blood 11.7 mg/dL (0.60-1.20); Globulin, Blood 4.9 g/dL (2.2-4.0); Potassium, Blood 6.1 mmol/L (3.5-5.5); Total Protein, Blood 6.7 g/dL (6.4-8.2)
[2023-02-16 19:55] VITALS: BP 179/103
--- NOTE | 2023-02-16 19:56 | NUR ---
DIALYSIS CONSULT ON CHART FOR DR BRITO. DR HARP COVERING AND AWARE. ORDERS GIVEN FOR OVERNIGHT CCPD TONIGHT. PT ADMITTED TO PCU 4. PT SITTING AT EDGE OF BED IN NO ACUTE DISTRESS. AT BEDSIDE. PT REPORTS EFFLUENT HAS BEEN CLEAR TO DATE AND ABD DISCOMFORT IS R/T PANCREATITIS. CYCLER STRUNG, PRIMED AND PROGRAMMED PER ORDERS. THERAPY STARTED WHEN PRIME COMPLETE. PT MONITORED THROUGH FILL #1 WITH NO REPORT OF DISCOMFORT. EXIT SITE CARE DONE WITH NEW STERILE DRESSING APPLIED WITH STRAIN RELIEFS. EXIT SITE CLEAR, DRY, TIGHT. PCU STAFF AWARE OF OVERNIGHT CCPD IN PROGRESS.
[2023-02-16 21:58] VITALS: BP 175/99
[2023-02-16 22:48] VITALS: BP 171/108
[2023-02-17 00:40] VITALS: BP 177/100
[2023-02-17 01:49] VITALS: BP 175/94
[2023-02-17 03:17] VITALS: BP 156/92
[2023-02-17 04:06] LABS: BASOPHILS ABSOLUTE AUTO 0.03 K/mm3 (0.00-0.23); BASOPHILS PERCENT AUTO 1 % (0-2); EOSINOPHILS ABSOLUTE AUTO 0.07 K/mm3 (0.00-0.68); EOSINOPHILS PERCENT AUTO 1 % (0-6); Hematocrit 26.1 % (37.0-53.0); Hemoglobin 8.8 g/dL (13.5-17.5); IMMATURE GRAN ABSOLUTE AUTO 0.07 K/mm3 (0.00-0.10); IMMATURE GRAN PERCENT AUTO 1 % (0-1); LYMPHOCYTES PERCENT AUTO 7 % (21-46); MONOCYTES ABSOLUTE AUTO 0.33 K/mm3 (0.16-1.47); MONOCYTES PERCENT AUTO 6 % (4-13); Mean Corpuscular HGB 30.7 pg (26.0-34.0); Mean Corpuscular HGB Conc 33.7 g/dL (31.5-36.5); Mean Corpuscular Volume 91 fL (80-100); Mean Platelet Volume 11.3 fL (9.1-12.4); NEUTROPHILS ABSOLUTE AUTO 4.57 K/mm3 (1.96-9.15); NEUTROPHILS PERCENT AUTO 84 % (41-73); Platelet Count 261 K/mm3 (150-400); RDW Coefficient Variation 13.2 % (11.7-14.2); RDW Standard Deviation 43.5 fL (35.1-46.3); Red Blood Cell Count 2.87 M/mm3 (4.30-5.90); White Blood Cell Count 5.47 K/mm3 (4.00-11.30)
[2023-02-17 05:13] LABS: C-REACTIVE PROTEIN, EXT RANGE 10.7 mg/dL (0.000-0.300); Magnesium, Blood 1.3 mg/dL (1.6-2.4)
[2023-02-17 05:14] LABS: Percent Saturation 64.6 % (20.0-50.0)
[2023-02-17 05:16] LABS: Albumin, Blood 1.7 g/dL (3.4-5.0); Albumin/Globulin Ratio 0.4 (0.8-1.8); Bilirubin, Total 0.8 mg/dL (0.1-1.0); Bun/Creatinine Ratio 6.8 (12.0-20.0); Calcium, Blood 7.3 mg/dL (8.5-10.1); Creatinine, Blood 11.2 mg/dL (0.60-1.20); Globulin, Blood 4.7 g/dL (2.2-4.0); Phosphorus, Blood 5.9 mg/dL (2.5-4.9); Total Protein, Blood 6.4 g/dL (6.4-8.2)
--- NOTE | 2023-02-17 05:59 | NUR ---
SHIFT SUMMARY PT IS A/Ox4 AND COOPERATIVE WITH CARE PROVIDED BY MEMBERS OF STAFF. ANSWERS QUESTIONS APPROPRIATELY AND ABLE TO MAKE HIS NEEDS KNOWN. CARDIAC GARCIA, PT REMAINS IN SR-ST 80-100'S WITH NO REPORTS OF CP OR PRESSURE T/O THE SHIFT. SBP WAS FAILRY HYPERTENSIVE WITH SBP RANGING 160-170'S. PRN HYDRALAZINE GIVEN WHICH PAIRED WITH PERITONEAL DIALYSIS REDUCED HIS SBP TO 150'S. RESPIRATORY GARCIA, MAINTAINS SPO2 >95%, REPORT SOME SOB DURING PD THIS PM, BUT SINCE RESOLVED AFTER TREATMENT WAS FINISHED. SOME RIGHT SIDED ABD TENDERNESS WELL GENERAL SORENESS REPORTED. PAIN MANAGED ORDERED VIA EMAR. SAID ABOVE, PT IS ON PD, BUT IS STILL ABLE TO MAKE URINE. PT REMAINS IN CONTACT ISO FOR HX OF C.DIFF. STOOL SAMPLE STILL NEEDED FOR R/O. INTERMITTENT EPISODES OF NAUSEA/VOMITING AT THE START OF SHIFT, RESPONDED WELL TO ORDERED ANTIEMETICS. NO NEW ORDERS AT THIS TIME, WILL REPORT TO ONCOMING RN. KAYLAH RENDON OF THIS NOTE
--- NOTE | 2023-02-17 07:30 | NUR ---
DIALYSIS NOTE CCPD TX COMPLETED PRESCRIBED, IDRAIN 275, TUF 63, AVG DWELL 40, LOST DWELL 2:02. PT REPORTS HE TOLERATED TX WELL DURING NIGHT AND DENIES ANY ALARMS. DISCUEESD PLAN FO RPT TO START HD SOON PERMCATH PLACED. PT AWARE OF PLAN AND PENDING CONSULT WITH IR FOR TUNNELED CVC. REPORT GIVEN TO BEDSIDE RNASHLEIGH AND WINIFRED CASTELLANOS RN
[2023-02-17 08:18] VITALS: BP 158/93
[2023-02-17 12:16] VITALS: BP 160/88
--- NOTE | 2023-02-17 13:44 | NUR ---
RN/ DAY SHIFT SUMMARY MORNING SHIFT REPORT RECIEVED DURING BEDSIDE GREETING WITH THE PATIENT. MEDICATION PASS WAS SUCCESSFULLY COMPLETED WITH THE ACCEPTION OF THE HEP BEING HELD FOR A POSSIBLE PROCEDURE. THE PATIENT SEEMS TO BE VERY TIRED AND HAS REPORTED MUSCULAR PAIN THROUGHOUT HIS WHOLE BODY. HE HAS TAKEN TYLENOL AND HIS PAIN IS MANAGED WELL ENOUGH. HE HAS RECIEVED BUMEX AND METACLOPROMIDE WHICH HAS AIDED IN HIS DISCOMFORT. HE IS SLIGHTLY PALE IN APPEARENCE BUT MENTIONS THAT HE STILL HAS DISCOMFORT IN HIS CHEST FROM THE PERICARDITIS THAT HE HAS RECENTLY BEEN DIAGNOSED WITH. CONTINUE TO MONITOR.
[2023-02-17 20:29] LABS: C DIFFICILE DNA Duplicate (Negative)
[2023-02-17 21:05] VITALS: BP 161/82
[2023-02-18] VITALS (20 sets, daily range): BP systolic 131–177; BP diastolic 60–122
--- NOTE | 2023-02-18 05:52 | NUR ---
SHIFT SUMMARY ASSUMED CARE OF PT AT 1900. PT IS A/OX4. HEART SOUNDS REGULAR. PT HAS 3+ EDEMA IN LOWER EXTREMIES. LUNG SOUNDS HAD FINE CRACKELS AT THE START OF SHIFT. BY THE END OF THE NOC PT NEEDED 4L NC WHILE SLEEPING DUE TO DESATURATION TO 83% EVEN WHILE AWAKE. PT DENIES SOB. CRACKLES IN LUNGS WERE WORSE THIS AM AT 0400. PT WAS INDEPENDNET OT BATHROOM. STILLH AVING RUNNY STOOL. PT SKIN IS JAUNDICED. PT C/O PAIN T/O THE NOC. FENTYAL DID NOT TOUCH PAIN FOR LONG. HOSPITALIST NOTIFIED AND REVEIWED CHART AND ORDERED PO PAIN MEDICATIONS, WHICH HELPED THE PT SLIGHTLY. PT DID NOT SLEEP AT ALL DURING THE NOC AND WAS VERY UNCOMFORTABLE. PT HOPES TO GET PERSCRIPTION FOR RESTLESS LEGS TODAY.
--- NOTE | 2023-02-18 18:33 | NUR ---
RN/ DAY SHIFT SUMMARY MORNING REPORT RECEIVED DURING GREETING AT BEDSIDE WITH PATIENT. ASSESSMENT AND MEDICATION PASS COMPLETED WITHOUT COMPLICATION. THE PATIENT THEN WHENT TO HEMODYALISIS AND WAS THERE FOR MOST OF THE DAY. 2400 WAS PULLED OUT DURING HEMODIALISIS. THE PATIENT DEMONSTATES DESAT DURING VITALS ASSESSMENT UPON RETURNING FROM DIALYSIS HE WAS PLACED ON 2 LITERS OF O2 AND HAS RETURNED TO ROOM AIR . CONTINUE TO MONITOR.
[2023-02-18 23:09] LABS: HBSAG SCREEN Negative (Negative); HCV AB Non Reactive (Non Reactive); HEP B CORE AB, TOT Negative (Negative)
[2023-02-19] VITALS (17 sets, daily range): BP systolic 130–172; BP diastolic 76–100
[2023-02-19 04:00] LABS: BASOPHILS ABSOLUTE AUTO 0.03 K/mm3 (0.00-0.23); BASOPHILS PERCENT AUTO 1 % (0-2); EOSINOPHILS ABSOLUTE AUTO 0.09 K/mm3 (0.00-0.68); EOSINOPHILS PERCENT AUTO 2 % (0-6); Hematocrit 21.3 % (37.0-53.0); Hemoglobin 6.9 g/dL (13.5-17.5); IMMATURE GRAN ABSOLUTE AUTO 0.09 K/mm3 (0.00-0.10); IMMATURE GRAN PERCENT AUTO 2 % (0-1); LYMPHOCYTES ABSOLUTE AUTO 0.95 K/mm3 (0.84-5.20); LYMPHOCYTES PERCENT AUTO 22 % (21-46); MONOCYTES ABSOLUTE AUTO 0.69 K/mm3 (0.16-1.47); MONOCYTES PERCENT AUTO 16 % (4-13); Mean Corpuscular HGB 30.1 pg (26.0-34.0); Mean Corpuscular HGB Conc 32.4 g/dL (31.5-36.5); Mean Corpuscular Volume 93 fL (80-100); Mean Platelet Volume 12.1 fL (9.1-12.4); NEUTROPHILS ABSOLUTE AUTO 2.43 K/mm3 (1.96-9.15); NEUTROPHILS PERCENT AUTO 57 % (41-73); NRBC ABSOLUTE 0.02 K/mm3 (0.00-0.02); NRBC Auto 0.5 /100 WBC (0.0-0.2); Platelet Count 248 K/mm3 (150-400); RDW Coefficient Variation 13.6 % (11.7-14.2); RDW Standard Deviation 45.1 fL (35.1-46.3); Red Blood Cell Count 2.29 M/mm3 (4.30-5.90); White Blood Cell Count 4.28 K/mm3 (4.00-11.30)
[2023-02-19 04:48] LABS: Albumin, Blood 1.4 g/dL (3.4-5.0); Albumin/Globulin Ratio 0.3 (0.8-1.8); Bilirubin, Total 1.1 mg/dL (0.1-1.0); Bun/Creatinine Ratio 6.9 (12.0-20.0); Calcium, Blood 7.4 mg/dL (8.5-10.1); Creatinine, Blood 8.93 mg/dL (0.60-1.20); Globulin, Blood 4.5 g/dL (2.2-4.0); Phosphorus, Blood 5.2 mg/dL (2.5-4.9); Potassium, Blood 3.7 mmol/L (3.5-5.5); Total Protein, Blood 5.9 g/dL (6.4-8.2)
--- NOTE | 2023-02-19 06:23 | NUR ---
SHIFT SUMMARY ASSUMED CARE OF PT AT 1900. PT IS A/OX4. PT WORE 2L NC T/O THE NOC. PT WAS ABLE TO GET SOME SLEEP THIS NOC. PT STIL C/O GENERALIZED PAIN. DR KAPADIA SAW PT LAST NOC. SAID PT WILL GET DIALYSIS WEDNESDAY AND MAYBE WEDNESDAY. THIS AM PT HBG WAS LOW, HOSPITALIST NOTIFIED AND ORDERED 1 UNIT PRBC WITH DIALYSIS.
[2023-02-19 12:27] LABS: Hematocrit 29.6 % (37.0-53.0); Hemoglobin 9.9 g/dL (13.5-17.5)
--- NOTE | 2023-02-19 12:58 | NUR ---
I CONNECTED THE PT TO THE MACHINE AND PUT IT IN A "PUF" (FLUID REMOVAL ONLY). AFTER AN HOUR THE MACHINE WAS PROGRAMED FOR DIALYSIS. THE MACHINE STARTED MAKING A SOUND THAT MEANT IT WAS NOT GETTING ENOUGH WATER, JUST FOR A SECOND. IT SLOWLY STARTED HAPPENING SOONER AND LASTING LONG ENOUGH TO ACTUALLY ALARM "NO WATER" FOR A SHORT TIME AND THEN CLEAR. I TURNED THE HOT WATER ON ABOUT HALF WAY TO ADD VOLUME BUT THE TEMP ALARM STARTED GOING OFF. SO I TURNED THE HOT WATER OFF. IT STARTED ALARMING "NO WATER" CONSTANTLY, SO I DC'ED TX PT ON FOR 2 HOURS . UT 2900 ML.
--- NOTE | 2023-02-19 15:28 | NUR ---
RN/ DAY SHIFT SUMMARY MORNING REPORT RECEIVED DURING PATIENT GREETING AT BEDSIDE. THE PATIENT IS IN GOOD SPIRITS WITH HIS AT HIS SIDE. ASSESSMENT AND MEDICATION PASS COMPLETED PRIOR TO MORNING HEMODIALYSIS WITH NO COMPLICATIONS, BUMEX AND METOPROLOL WERE WITHHELD PER CLINICAL JUDGMENT. THE PATIENT HAD A SINGULAR EPISODE OF SLIGHT PANIC WITH THE SENSATION OF "ELECTRICITY" AND PALPITATION DURING BLOOD ADMINISTRATION WHILE BEING HEMODIALIZED. THE PATIENT HAS THEN HAD A SHOWER POST PROCEDURE AND HAS HAD SOME ISSUES WITH NAUSEA THAT HAVE BEEN TREATED WITH REGLAN AND ZOFRAN WITH SUCCESSFUL CONTROL OF SYMPTOMS. THE PATIENT HAS BEEN MORE VERBAL WITH HIS PAIN MANAGEMENT WITH ROXYCO FOR PAIN. WILL CONTINUE TO MONITOR.
--- NOTE | 2023-02-19 16:23 | NUR ---
PATIENT REQUESTING GENTAMICIN OINTMENT WITH PD DIALYSIS CATH DRESSING CHANGE POST SHOWER. CALL PLACED TO DR. CATALAN. NEW ORDERS FOR GENTAMICIN OINTMENT NEEDED FOR PD DRESSING CHANGES.
--- NOTE | 2023-02-19 17:49 | NUR ---
1630 INSULIN CHECK READING HIGH. PATIENT HAS BEEN MANAGING OWN INSULIN PUMP AND CBG'S AT THIS TIME, ORDERS IN PLACE FOR PATIENT MANAGEMENT. PATIENT STATES HIS BLOOD SUGAR IS HIGH FROM REMOVING INSULIN PUMP DURING SHOWER, BUT IS NOW TRENDING DOWN. WILL CONTINUE TO MONITOR VIA HOSPITAL GLUCOMETER TO ENSURE BLOOD SUGARS ARE STABLE.
--- NOTE | 2023-02-19 18:38 | NUR ---
PATIENT WAITING FOR FAMILY MEMEBER TO BRING INJECTOR DEVICE TO REPLACE INSULIN PUMP. BLOOD SUGAR REMAINS ELEVATED IN 400'S. CALL PLACED TO DR. HAWKINS. ORDERS FOR ONE TIME DOSE - 6 UNITS OF HUMALOG SC. PATIENT UPDATED. WAITING FOR INSULING FROM PHARMACY. PLANS TO TRANSFER TO MEDICAL FLOOR. PATIENT AND FAMILY UPDATED.
--- NOTE | 2023-02-19 19:45 | NUR ---
TRANSFER NOTE; PT ARRIVES FROM PCU VIA WHEELCHAIR. THE PT IS AXO X4 AND ABLE TO INDEPENDENTLTY AMBULATE TO THE BED. THE PT IS ON RA AND IS NOT SOB. THE PT DENIES ANY CHEST PAIN OR SOB UPON ADMIT. THE PT DOES ENDORSE SOME MILD GENERALIZED PAIN THAT STARTED ABOUT 5 WEEKS. PRN ROXICODE WILL BE ADMINISTERED WHEN AVAILABLE UPON REQUEST. AT THIS TIME THE PT IS LAYING IN BED WITH THE BED IN THE LOWEST POSITION AND THE CALL LIGHT AT BEDSIDE. THE PT DOES HAVE A INSULIN PUMP THAT HE IS INDEPENDENT WITH WELL A DEXCOM TO MONITOR HIS GLUCOSE LEVEL.
[2023-02-20] VITALS (18 sets, daily range): BP systolic 108–172; BP diastolic 68–94
--- NOTE | 2023-02-20 04:03 | NUR ---
SHIFT SUMMARY; NO ACUTE CHANGES OVERNIGHT. THE PT HAS BEEN SLEEPING FOR THE MAJORITY OF THE NIGHT. THE PT IS AOX X4 AND INDEPENDENT IN THE ROOM. THE PT HAS ENDORSED SOME GENERALIZED PAIN T/O THE NIGHT FOR WHICH HE HAS RECIVED ROXICODONE. THE PT HAS ALSO HAD SOME NAUSEA T/O THE NIGHT. THE PT DENIES ANY SOB OR CHEST PAIN/PRESSURE. CURRENTLY THE PT IS SLEEPING IN BED WITH THE BED IN THE LOWEST POSITION AND THE CALL LIGHT AT BEDSIDE.
--- NOTE | 2023-02-20 06:24 | NUR ---
INSULIN OVERNIGHT; THE PT GOT 1 BOLUS FROM FOR 4UNITS. THE PTS BASAL RATE FROM [id number] IS 0.5 UNITS, BASAL RATE FROM 0981-4324 IS 1.75 UNITS/HR AND BASAL RATE FROM 3657-8906 IS 0.5 UNITS PER HOUR. TOTAL INSULIN FROM [id number] 4 UNITS BOLUS 0.5X1.5 HOURS=0.75 UNITS 1.75X8 HOURS=14 UNITS 0.5X1 HOUR=0.5 UNITS TOTAL OF 19.25 UNITS OF INSULIN.
[2023-02-20 06:29] LABS: Hematocrit 32.5 % (37.0-53.0); Hemoglobin 10.7 g/dL (13.5-17.5); Mean Corpuscular HGB 30.7 pg (26.0-34.0); Mean Corpuscular HGB Conc 32.9 g/dL (31.5-36.5); Mean Corpuscular Volume 93 fL (80-100); Mean Platelet Volume 11.5 fL (9.1-12.4); NRBC ABSOLUTE 0.07 K/mm3 (0.00-0.02); NRBC Auto 1.3 /100 WBC (0.0-0.2); Platelet Count 322 K/mm3 (150-400); RDW Coefficient Variation 13.8 % (11.7-14.2); RDW Standard Deviation 46.4 fL (35.1-46.3); Red Blood Cell Count 3.48 M/mm3 (4.30-5.90); White Blood Cell Count 5.55 K/mm3 (4.00-11.30)
[2023-02-20 06:54] LABS: BAND PERCENT MAN 1 % (0-8); BASOPHILS PERCENT MAN 0 % (0-2); EOSINOPHILS ABSOLUTE MAN 0.22 K/mm3 (0.00-0.68); EOSINOPHILS PERCENT MAN 4 % (0-6); LYMPHOCYTES ABSOLUTE MAN 2.27 K/mm3 (0.84-5.20); LYMPHOCYTES PERCENT MAN 41 % (21-46); METAMYELOCYTE ABSOLUTE MAN 0.22 K/mm3 (0.00-0.00); METAMYELOCYTE PERCENT MAN 4 % (0-0); MONOCYTES ABSOLUTE MAN 1.38 K/mm3 (0.16-1.47); MONOCYTES PERCENT MAN 25 % (4-13); MYELOCYTE ABSOLUTE MAN 0.05 K/mm3 (0.00-0.00); MYELOCYTE PERCENT MAN 1 % (0-0); NEUTROPHILS ABSOLUTE MAN 1.38 K/mm3 (1.96-9.15); SEG NEUTROPHILS PERCENT MAN 24 % (41-73); TOTAL CELLS COUNTED 100
[2023-02-20 07:12] LABS: Albumin, Blood 1.7 g/dL (3.4-5.0); Albumin/Globulin Ratio 0.3 (0.8-1.8); Bilirubin, Total 1.2 mg/dL (0.1-1.0); Calcium, Blood 8.5 mg/dL (8.5-10.1); Globulin, Blood 5.6 g/dL (2.2-4.0); Phosphorus, Blood 5.2 mg/dL (2.5-4.9); Potassium, Blood 4.2 mmol/L (3.5-5.5); Total Protein, Blood 7.3 g/dL (6.4-8.2)
[2023-02-20 07:14] LABS: Bun/Creatinine Ratio 9.2 (12.0-20.0); Creatinine, Blood 8.71 mg/dL (0.60-1.20)
--- NOTE | 2023-02-20 18:02 | NUR ---
SHIFT SUMMARY PT AWAKE AND SITTING UP IN CHAIR AT WINDOW, DURING SHIFT REPORT THIS AM. PT IS INDEPENDENT IN AND TO [facility]. C/O NAUSEA DURING REPORT; PT MEDICATED PER EMAR. PT TAKEN DOWN TO DIALYSIS AT 0900, PER ORDERS. MODEL MAKER APPRENTICE REPORTED 3900 ML OF FLUID TAKEN OFF. PT TO D/C HOME AFTER DIALYSIS. AND PT BOTH WANTING TO GO HOME EARLY THIS AM. DR CATALAN NOTIFIED WHEN PT RETURNED FROM DIALYSIS; D/C ORDERS PLACED. PT'S LATER DECIDED THAT PT SHOULD STAY ANOTHER NIGHT. DR CATALAN NOTIFIED AND CAME TO TO TALK WITH PT AND . NEW ORDERS PLACED. MEDICATIONS ADJUSTED. DR CATALAN TO REASSESS IN AM. PT AND REPORTING SLIGHT RASH TO BL ANKLES; DR CATALAN AWARE. PT EATING DINNER AT THIS TIME. AT . DENIED FURTHER NEEDS PRESENTLY. CALL LT IN REACH.
--- NOTE | 2023-02-21 04:11 | NUR ---
SHIFT SUMMARY; NO ACUTE CHANGES OVERNIGHT.THE PT IS AXO X4 AND INDEPENDENT IN THE ROOM. THE PT HAS BEEN VERY TIRED THIS EVENING. THE PT DENIES ANY SOB, CHEST PAIN/PRESSUERE OR N/V. CURRENTLY THE PT IS SLEEPING IN BED WITH THE BED IN THE LOWEST POSITION AND THE CALL LIGHT AT BEDSIDE.
[2023-02-21 05:24] VITALS: BP 157/94
[2023-02-21 05:54] LABS: Hematocrit 30.3 % (37.0-53.0); Hemoglobin 9.9 g/dL (13.5-17.5); Mean Corpuscular HGB 30.4 pg (26.0-34.0); Mean Corpuscular HGB Conc 32.7 g/dL (31.5-36.5); Mean Corpuscular Volume 93 fL (80-100); Mean Platelet Volume 10.9 fL (9.1-12.4); NRBC ABSOLUTE 0.13 K/mm3 (0.00-0.02); Platelet Count 285 K/mm3 (150-400); RDW Coefficient Variation 13.3 % (11.7-14.2); RDW Standard Deviation 44.9 fL (35.1-46.3); Red Blood Cell Count 3.26 M/mm3 (4.30-5.90); White Blood Cell Count 6.42 K/mm3 (4.00-11.30)
[2023-02-21 06:05] LABS: BAND PERCENT MAN 2 % (0-8); BASOPHILS ABSOLUTE MAN 0.12 K/mm3 (0.00-0.23); BASOPHILS PERCENT MAN 2 % (0-2); EOSINOPHILS ABSOLUTE MAN 0.06 K/mm3 (0.00-0.68); EOSINOPHILS PERCENT MAN 1 % (0-6); LYMPHOCYTES ABSOLUTE MAN 1.73 K/mm3 (0.84-5.20); LYMPHOCYTES PERCENT MAN 27 % (21-46); METAMYELOCYTE ABSOLUTE MAN 0.38 K/mm3 (0.00-0.00); METAMYELOCYTE PERCENT MAN 6 % (0-0); MONOCYTES ABSOLUTE MAN 1.66 K/mm3 (0.16-1.47); MONOCYTES PERCENT MAN 26 % (4-13); MYELOCYTE ABSOLUTE MAN 0.19 K/mm3 (0.00-0.00); MYELOCYTE PERCENT MAN 3 % (0-0); NEUTROPHILS ABSOLUTE MAN 2.24 K/mm3 (1.96-9.15); SEG NEUTROPHILS PERCENT MAN 33 % (41-73); TOTAL CELLS COUNTED 100
[2023-02-21 06:23] LABS: Albumin, Blood 1.6 g/dL (3.4-5.0); Albumin/Globulin Ratio 0.3 (0.8-1.8); Bilirubin, Total 1.3 mg/dL (0.1-1.0); Bun/Creatinine Ratio 10.2 (12.0-20.0); Calcium, Blood 8.7 mg/dL (8.5-10.1); Creatinine, Blood 7.83 mg/dL (0.60-1.20); Globulin, Blood 4.9 g/dL (2.2-4.0); Phosphorus, Blood 5.7 mg/dL (2.5-4.9); Potassium, Blood 3.8 mmol/L (3.5-5.5); Total Protein, Blood 6.5 g/dL (6.4-8.2)
--- NOTE | 2023-02-21 06:36 | NUR ---
INSULIN OVERNIGHT; PLEASE SEE PRIOR NOTE FROM LAST NIGHT ON PTS BREAKDOWN OF HOURLY BASAL RATES. TOTAL INSULIN; 1 BOLUS FOR 1.2UNITS 1.78v0OBH=16 UNITS .7z9TFH=9 UNITS 17.2 UNITS OF INSULIN WAS INFUSED INTO THE PT VIA INSULIN PUMP FROM 1830 ON 02/20/23- TO 0630 ON 02/21/23.
[2023-02-21 08:11] VITALS: BP 164/94
[2023-02-21] MEDS ORDERED: TRAM50 PO (11:06)
[2023-02-21] MEDS ORDERED: PROM25 PO (12:41)
--- NOTE | 2023-02-21 13:55 | NUR ---
PT AWAKE DURING SHIFT REPORT. FEELING MUCH BETTER. NO C/O NAUSEA LAST NIGHT OR TODAY. REPORTED ULTRAM EFFECTIVE FOR PAIN. PT REMAINED INDEPENDENT IN RM, SITTING UP TO CHAIR FOR MEALS. DR CATALAN IN TO SEE PT. D/C ORDERS UPDATED. MEDS FAXED PER PT REQUEST. HARD SCRIPT GIVEN FOR ULTRAM. PT ASSISTED OUT TO 'S CAR VIA W/C.
[2023-02-23 03:09] LABS: QUANTIFERON MITOGEN VALUE >10.00 IU/mL (.); QUANTIFERON TB2 AG VALUE 0.01 IU/mL (.); QUANTIFERON-TB GOLD PLUS Negative (Negative)
== END 2023-02-21 13:09 | disposition home or self-care (01) | DRG 314 ==
LOC: PCU 18:08 → MEDS 02-19 19:28 → ENPENDDIS 02-20 14:04 → MEDS 02-21 13:09
PROVIDERS: Hospitalist; Internal Medicine; Nurse Practitioner Acute Care; ADMIT Hospitalist
PROC: 0JH63XZ Insertion of Tunneled Vascular Access Device into Chest Subcutaneous Tissue and Fascia, Percutaneous Approach (ICD-10-PCS; principal; 2023-02-17)
PROC: 02HV33Z Insertion of Infusion Device into Superior Vena Cava, Percutaneous Approach (ICD-10-PCS; 2023-02-17)
PROC: B518ZZA Fluoroscopy of Superior Vena Cava, Guidance (ICD-10-PCS; 2023-02-17)
PROC: B548ZZA Ultrasonography of Superior Vena Cava, Guidance (ICD-10-PCS; 2023-02-17)
PROC: 5A1D70Z Performance of Urinary Filtration, Intermittent, Less than 6 Hours Per Day (ICD-10-PCS; 2023-02-18)
DX: T82.848A Pain due to vascular prosthetic devices, implants and grafts, initial encounter (principal); N18.6 End stage renal disease; E87.1 Hypo-osmolality and hyponatremia; I32 Pericarditis in diseases classified elsewhere; I31.39 Other pericardial effusion (noninflammatory); I12.0 Hypertensive chronic kidney disease with stage 5 chronic kidney disease or end stage renal disease; D63.1 Anemia in chronic kidney disease; E83.42 Hypomagnesemia; Z86.79 Personal history of other diseases of the circulatory system; G89.4 Chronic pain syndrome; R74.01 Elevation of levels of liver transaminase levels; M19.90 Unspecified osteoarthritis, unspecified site; J45.909 Unspecified asthma, uncomplicated; E78.5 Hyperlipidemia, unspecified; G43.909 Migraine, unspecified, not intractable, without status migrainosus; K76.1 Chronic passive congestion of liver; E10.65 Type 1 diabetes mellitus with hyperglycemia; E87.5 Hyperkalemia; N52.9 Male erectile dysfunction, unspecified; E10.22 Type 1 diabetes mellitus with diabetic chronic kidney disease; E10.3599 Type 1 diabetes mellitus with proliferative diabetic retinopathy without macular edema, unspecified eye; E10.40 Type 1 diabetes mellitus with diabetic neuropathy, unspecified; Y84.1 Kidney dialysis as the cause of abnormal reaction of the patient, or of later complication, without mention of misadventure at the time of the procedure; Z99.2 Dependence on renal dialysis; Z98.41 Cataract extraction status, right eye; Z98.890 Other specified postprocedural states; Z79.899 Other long term (current) drug therapy; Z86.19 Personal history of other infectious and parasitic diseases
CPT/HCPCS: 36415; 36430; 36558; 71045; 74176; 76937; 77001; 80053; 82728; 82947; 83540; 83550; 83690; 83735; 84100; 85014; 85018; 85025; 85651; 86140; 86480; 86704; 86708; 86803; 86850; 86900; 86901; 86923; 87015; 87045; 87046; 87205; 87340; 87899; 94760; 99152; 99153; A9270; C1750; C1769; J0360; J0780; J1644; J1815; J2250; J2405; J2765; J3010; J7050; P9016; Q5106

== ENCOUNTER 2023-08-19 11:06 | Inpatient (IN) | payer OTHER ==
[~2023-08-19] VITALS: Ht 170.2 cm; Wt 81.2 kg
[2023-08-19] VITALS (42 sets, daily range): BP systolic 109–173; BP diastolic 65–91
[~2023-08-19 11:06] MED LIST changes: +PROM25 PO; +TRAM50 PO
[2023-08-19 11:25] LABS: Calcium, Ionized (POC) 0.95 mmol/L (1.10-1.46); Chloride (POC) 90 mmol/L (98-108); Creatinine (POC) 6.9 mg/dL (0.8-1.3); Glucose (ISTAT POC) 125 mg/dL (70-99); Hemoglobin (POC) 14.6 g/dL (13.5-17.5); Sodium (POC) 128 mmol/L (135-148); Total CO2 (POC) 29 mmol/L (21-32)
[2023-08-19 11:28] LABS: BASOPHILS ABSOLUTE AUTO 0.03 K/mm3 (0.00-0.23); BASOPHILS PERCENT AUTO 1 % (0-2); EOSINOPHILS ABSOLUTE AUTO 0.13 K/mm3 (0.00-0.68); EOSINOPHILS PERCENT AUTO 2 % (0-6); Hematocrit 39.5 % (37.0-53.0); Hemoglobin 13.6 g/dL (13.5-17.5); IMMATURE GRAN ABSOLUTE AUTO 0.02 K/mm3 (0.00-0.10); IMMATURE GRAN PERCENT AUTO 0 % (0-1); LYMPHOCYTES ABSOLUTE AUTO 1.71 K/mm3 (0.84-5.20); LYMPHOCYTES PERCENT AUTO 28 % (21-46); MONOCYTES ABSOLUTE AUTO 0.49 K/mm3 (0.16-1.47); MONOCYTES PERCENT AUTO 8 % (4-13); Mean Corpuscular HGB 31.8 pg (26.0-34.0); Mean Corpuscular HGB Conc 34.4 g/dL (31.5-36.5); Mean Corpuscular Volume 92 fL (80-100); Mean Platelet Volume 9.6 fL (9.1-12.4); NEUTROPHILS ABSOLUTE AUTO 3.83 K/mm3 (1.96-9.15); NEUTROPHILS PERCENT AUTO 62 % (41-73); Platelet Count 251 K/mm3 (150-400); RDW Coefficient Variation 16.4 % (11.7-14.2); RDW Standard Deviation 51.4 fL (35.1-46.3); Red Blood Cell Count 4.28 M/mm3 (4.30-5.90); White Blood Cell Count 6.21 K/mm3 (4.00-11.30)
[2023-08-19 11:57] LABS: Ethanol (Alcohol), Blood, Med <3 mg/dL
[2023-08-19 11:58] LABS: Alanine Aminotransfer (ALT/SGP 33 U/L (12-78); Albumin, Blood 4.1 g/dL (3.4-5.0); Albumin/Globulin Ratio 0.9 (0.8-1.8); Alk Phos 101 U/L (50-136); Anion Gap 8 mmol/L (6-16); Aspartate Aminotrans (AST/SGOT 35 U/L (12-37); Bilirubin, Total 0.5 mg/dL (0.1-1.0); Blood Urea Nitrogen 33 mg/dL (8-24); Bun/Creatinine Ratio 5.3 (12.0-20.0); CO2, Blood 29 mmol/L (21-32); Calcium, Blood 9.5 mg/dL (8.5-10.1); Chloride, Blood 90 mmol/L (98-108); Creatinine, Blood 6.27 mg/dL (0.60-1.20); Globulin, Blood 4.4 g/dL (2.2-4.0); Glomerular Filtration Rate 11 (60-); Glucose, Blood 127 mg/dL (70-99); Sodium, Blood 127 mmol/L (136-145); Total Protein, Blood 8.5 g/dL (6.4-8.2)
[2023-08-19] MEDS ORDERED: Ropinirole HCl0.5 MG PO (12:30)
[2023-08-19] MEDS ORDERED: Rena-Vite Tabl0.8 MG PO (12:30)
[2023-08-19 12:44] LABS: Adenovirus Not Detected (NOT DETECT); Bordetella pertussis Not Detected (NOT DETECT); Chlamydophila pneumoniae Not Detected (NOT DETECT); Coronavirus 229E Not Detected (NOT DETECT); Coronavirus HKU1 Not Detected (NOT DETECT); Coronavirus NL63 Not Detected (NOT DETECT); Coronavirus OC43 Not Detected (NOT DETECT); Human Metapneumovirus Not Detected (NOT DETECT); Human Rhinovirus/Enterovirus Not Detected (NOT DETECT); Influenza A/2009-H1 Not Detected (NOT DETECT); Influenza A/H1 Not Detected (NOT DETECT); Influenza A/H3 Not Detected (NOT DETECT); Influenza B Not Detected (NOT DETECT); Mycoplasma pneumoniae Not Detected (NOT DETECT); Parainfluenza Virus 1 Not Detected (NOT DETECT); Parainfluenza Virus 2 Not Detected (NOT DETECT); Parainfluenza Virus 3 Not Detected (NOT DETECT); Parainfluenza Virus 4 Not Detected (NOT DETECT); Respiratory Syncytial Virus Not Detected (NOT DETECT); SARS-Cov-2 (COVID-19), BioFire Not Detected (NOT DETECT)
--- NOTE | 2023-08-19 15:06 | NUR ---
PT ARRIVAL... PT ARRIVED TO THE UNIT AT 1430, PT IS SLEEPING BUT WAKES TO VERBAL STIMULI, HE IS A&Ox4 BUT FALLS ASLEEP QUICKLY WHEN NOT BEING STIMULATED. PT ARRIVED ON A NICARDIPINE DRIP RUNNING AT 3MG/HR WITH MAPS >95 PER PROVIDER ORDERS. HE IS IN SR IN THE 90'S, NO EDEMA NOTED ON THIS ASSESSMENT. L/S CLEAR T/O ON RA. BT PRESENT AND NORMOACTIVE, PD CATH NOTED TO HIS RLQ AND HD CATH TO HIS RIGHT UPPER CHEST WALL. TEMP 98.8. PT DENIES ANY N/V SOB OR HEAD ACHE. SCLEARA ARE RED/BLOOD SHOT. THE PT'S LEFT PUPIL IS SLIGHTLY LARGER THAN THE RIGHT AT 3MM AND 2MM, SLUGGISH TO REACT. THE PT'S MOM IS AT THE BEDSIDE DURING THIS ADMIT/ASSESSMENT. AT 1445 THE NICARDIPINE DRIP WAS STOPPED BY THIS RN TO ASSESS THE PT'S BP RESPONSE TO THE MEDICATION, THE PT'S BP INCREASED FROM MAPS IN THE 90'S-95'S TO MAPS IN THE 110'S THE DRIP WAS RESTARTED AT 1500. CALL LIGHT IN REACH WILL CONTINUE TO MONITOR.
--- NOTE | 2023-08-19 17:42 | NUR ---
SHIFT SUMMARY... NO ACUTE NEGATIVE CHANGES NOTED THIS SHIFT. THE PT'S BP HAS CONTINUED TO BE 150'S / 80'S WITH MAPS >95 ON THE NICARDIPINE DRIP RUNNING AT 3MG/HR. THE PT C/O OF A 5/10 HEADACHE WHICH HE WAS GIVEN TYLENOL TO MINIMAL IMPROVEMENT. THE PT CONTINUES TO BE SLEEPY BUT WAKES EASILY AND WHEN AWAKE IS A&Ox4. PT HAS NOT VOIDED SINCE ADMIT. DR. HARP CONSULTED PER ORDERS. PT HAD REFUSED TO TAKE HIS LONG ACTING INSULIN STATING HE DOESN'T TAKE LONG ACTING AT HOME. CALL LIGHT IN REACH WILL CONTINUE TO MONITOR UNTIL REPORT IS GIVEN TO ONCOMING RN.
--- NOTE | 2023-08-19 19:00 | NUR ---
CARE ASSUMPTION DURING BEDSIDE SHIFT REPORT W RIGOBERTO RN THE PT IS SITTING IN BED ALERT W FAMILY AT BEDSIDE. PT REPORTING NAUSEA AND GIVEN ZOFRAN PER EMAR W GOOD RELIEF OF SYMPTOMS. PT ON NICARDAPINE GTT AT 3 MG/HR W SBP IN THE 150'S. MONITOR SHOWING SR 90'S. PT IS COMMUNICATING APPROPRIATELY W STAFF.
--- NOTE | 2023-08-19 21:46 | NUR ---
UPDATE PT USING HIS INSULIN PUMP AND REFUSING TO TAKE ANY LONG ACTING INSULIN FROM THE RN'S. PROVIDER NOTIFIED AND IS OK W PATIENT USING HIS INSULIN PUMP AT THE BASAL RATE BUT WANTS THE COMPUTER GAME TESTER TO ADMINISTER HIS PRE MEAL BOLUS'S SQ. PT AGREEING TO THIS PLAN. ASSURANCE MANAGER INSURANCE NOTIFIED.
[2023-08-20] VITALS (31 sets, daily range): BP systolic 108–150; BP diastolic 60–86
[2023-08-20 03:35] LABS: BASOPHILS ABSOLUTE AUTO 0.03 K/mm3 (0.00-0.23); BASOPHILS PERCENT AUTO 0 % (0-2); EOSINOPHILS ABSOLUTE AUTO 0.08 K/mm3 (0.00-0.68); EOSINOPHILS PERCENT AUTO 1 % (0-6); Hematocrit 34.6 % (37.0-53.0); IMMATURE GRAN ABSOLUTE AUTO 0.03 K/mm3 (0.00-0.10); IMMATURE GRAN PERCENT AUTO 0 % (0-1); LYMPHOCYTES ABSOLUTE AUTO 2.42 K/mm3 (0.84-5.20); LYMPHOCYTES PERCENT AUTO 24 % (21-46); MONOCYTES ABSOLUTE AUTO 0.67 K/mm3 (0.16-1.47); MONOCYTES PERCENT AUTO 7 % (4-13); Mean Corpuscular HGB Conc 34.7 g/dL (31.5-36.5); Mean Corpuscular Volume 92 fL (80-100); Mean Platelet Volume 9.9 fL (9.1-12.4); NEUTROPHILS ABSOLUTE AUTO 7.02 K/mm3 (1.96-9.15); NEUTROPHILS PERCENT AUTO 69 % (41-73); NRBC ABSOLUTE 0.02 K/mm3 (0.00-0.02); NRBC Auto 0.2 /100 WBC (0.0-0.2); Platelet Count 264 K/mm3 (150-400); RDW Coefficient Variation 16.5 % (11.7-14.2); RDW Standard Deviation 51.6 fL (35.1-46.3); Red Blood Cell Count 3.75 M/mm3 (4.30-5.90); White Blood Cell Count 10.25 K/mm3 (4.00-11.30)
[2023-08-20 04:12] LABS: Albumin, Blood 3.3 g/dL (3.4-5.0); Albumin/Globulin Ratio 0.9 (0.8-1.8); Bilirubin, Total 0.4 mg/dL (0.1-1.0); Bun/Creatinine Ratio 6.2 (12.0-20.0); Calcium, Blood 8.7 mg/dL (8.5-10.1); Creatinine, Blood 9.19 mg/dL (0.60-1.20); Globulin, Blood 3.6 g/dL (2.2-4.0); Phosphorus, Blood 5.6 mg/dL (2.5-4.9); Potassium, Blood 4.8 mmol/L (3.5-5.5); Total Protein, Blood 6.9 g/dL (6.4-8.2)
--- NOTE | 2023-08-20 05:42 | NUR ---
MRI CT TECH SUMMARY THE PT HAS REMAINED ALERT AND ORIENTED THIS SHIFT W NO NUERO DEFICITS NOTED. PT BEGAN SHIFT ON NICARDAPINE GTT BUT AFTER RECIEVING PO PROCAARDIA THE GTT WAS TITRATED OFF BEFORE MIDNIGHT AND THE PT'S BP WNL THE REST OF THE SHIFT. PT'S MONITOR SHOWING SR 80'S-90'S THIS SHIFT. PT AFEBRILE THIS SHIFT. SPO2 >94% ON RM AIR. PT WAS NAUSEOUS AT THE START OF THE SHIFT REQUIRING ZOFRAN AFTER THROWING UP BUT DENIED ANY NAUSEA THE REST OF THE SHIFT AFTER RECIEVING THE ZOFRAN. PT'S BLOOD GLUCOSE ELEVATED AT THE START OF THE SHIFT >400 AND THE PT ADAMANT ON USING HIS INSULIN PUMP TO TREAT HIS BLOOD GLUCOSE SO PROVIDER CONTACTED AND OK'D THE USE OF THE INSULIN PUMP BUT WITH US DOING THE PRE MEAL BOLUSES SUB-Q PER LOW SS COVERAGE, PT NOTIFIED AND AGREEING TO THIS. WILL REPORT TO ONCOMING RN.
--- NOTE | 2023-08-20 07:00 | NUR ---
ASSUMPTION OF CARE PT RESTING, WAKENS EASILY TO VERBAL STIMULI. HE IS ALERT AND ORIENTED. NSR ON MONITOR WITH RATE IN 80S-90S. SBP 120S. BED IN LOW POSITION AND CALL LIGHT WITHIN REACH. CBG 82, BREAKFAST TRAY PROVIDED.
--- NOTE | 2023-08-20 09:46 | NUR ---
UPDATE PT REMAINS ALERT AND ORIENTED WITH PLEASANT AFFECT. HE AMBULATED TO THE TOILET WITH STEADY GAIT, DENIED LIGHTHEADEDNESS AND DIZZINESS. PT STS HE WOULD LIKE TO GO HOME TODAY AFTER THE RESULTS OF THE MRI ARE AVAILABLE. HOSPITALIST NOTIFIED. NSR ON MONITOR WITH RATE IN 80S, SBP 130S-140S. PT CURRENTLY SITTING IN RECLINER, CALL LIGHT WITHIN REACH.
--- NOTE | 2023-08-20 12:56 | NUR ---
UPDATE PT TAKEN DOWN TO MRI AT APPROX 11:50, RETURNED BY 12:15. PT EATING LUNCH. HOSPITALIST ROUNDED AND UPDATED PT.
[2023-08-20] MEDS ORDERED: NIFE60ER PO (13:50)
--- NOTE | 2023-08-20 14:10 | NUR ---
DISCHARGE PT PROVIDED DISCHARGE INSTRUCTIONS. PRESCRIPTIONS FAXED TO [facility] PER PT REQUEST. FOLLOW UP APPOINTMENT WITH DR CATALAN SCHEDULED. PLAN FOR DIALYSIS TOMORROW MORNING AT 05:45 WITH ARRIVAL TIME OF 5:20. PT VERBALIZES UNDERSTANDING AND DENIES ADDITIONAL QUESTIONS AT THIS TIME. PT DENIED WHEELCHAIR ESCORT OUT AND AMBULATES WITH STEADY GAIT. SPOUSE ASSISTED WITH BELONGINGS AND IS DRIVING PT HOME.
== END 2023-08-20 14:10 | disposition home or self-care (01) | DRG 77 ==
LOC: ER 11:06 → ICUE 13:11
PROVIDERS: Student in an Organized Health Care Education/Training Program; ADMIT Internal Medicine
DX: I67.4 Hypertensive encephalopathy (principal); N18.6 End stage renal disease; I16.1 Hypertensive emergency; E87.1 Hypo-osmolality and hyponatremia; I12.0 Hypertensive chronic kidney disease with stage 5 chronic kidney disease or end stage renal disease; E10.22 Type 1 diabetes mellitus with diabetic chronic kidney disease; M81.0 Age-related osteoporosis without current pathological fracture; E78.5 Hyperlipidemia, unspecified; G43.909 Migraine, unspecified, not intractable, without status migrainosus; M19.90 Unspecified osteoarthritis, unspecified site; E10.3599 Type 1 diabetes mellitus with proliferative diabetic retinopathy without macular edema, unspecified eye; E83.51 Hypocalcemia; G25.81 Restless legs syndrome; N52.9 Male erectile dysfunction, unspecified; Z11.52 Encounter for screening for COVID-19; Z99.2 Dependence on renal dialysis; Z79.4 Long term (current) use of insulin; Z79.83 Long term (current) use of bisphosphonates; Z96.41 Presence of insulin pump (external) (internal); Z86.73 Personal history of transient ischemic attack (TIA), and cerebral infarction without residual deficits
CPT/HCPCS: 0202U; 36415; 70450; 70551; 71045; 80047; 80053; 82947; 84100; 84484; 85014; 85025; 93005; 93010; 96365; 96366; 96375; 99285-25; A9270; J0612; J1644; J1790; J1815; J2405; J7050

== ENCOUNTER 2024-03-03 11:49 | Day surgery (SDC) | payer MEDICARE, OTHER ==
[~2024-03-03] VITALS: Ht 172.7 cm; Wt 82.1 kg
[~2024-03-03 11:49] MED LIST changes: +NIFE60ER PO; +NS 1,000 ML IV ONE; +Ropinirole HCl0.5 MG PO
[2024-03-03] MEDS ORDERED: AMIT25 (12:24)
[2024-03-03] MEDS ORDERED: CALC.25 (12:25)
[2024-03-03] MEDS ORDERED: FELODIPINE ER10 M1 (12:26)
[2024-03-03] MEDS ORDERED: Calcium Acetat667 MG (12:26)
[2024-03-03] MEDS ORDERED: Vitamin D1000 UNI1 (12:26)
[2024-03-03] MEDS ORDERED: CINA30 (12:26)
[2024-03-03] MEDS ORDERED: HUMALOG MI100 UNIT/5 (12:27)
[2024-03-03] MEDS ORDERED: GABA100 (12:27)
[2024-03-03] MEDS ORDERED: MINO2.5 (12:27)
[2024-03-03] MEDS ORDERED: LIDO5TO (12:27)
[2024-03-03] MEDS ORDERED: Ropinirole HCl0.5 MG (12:28)
[2024-03-03] MEDS ORDERED: ONDA4ODT (12:28)
[2024-03-03] MEDS ORDERED: [UNRECOGNIZED DRUG - OTHER] (12:28)
[2024-03-03] MEDS ORDERED: propofoL 50 ML IV ONE (12:49)
[2024-03-03] MEDS ORDERED: NS 1,000 ML IV ONE (12:55)
--- NOTE | 2024-03-03 13:10 | NUR ---
03/03/24 1310 Li Grey DENIES PAIN.
[2024-03-03 14:09] VITALS: BP 146/69
== END 2024-03-03 13:50 | disposition home or self-care (01) ==
LOC: ORSCSDS 11:49
PROVIDERS: Specialist
PROC: 0DB98ZX Excision of Duodenum, Via Natural or Artificial Opening Endoscopic, Diagnostic (ICD-10-PCS; principal; 2024-03-03 13:00)
PROC: 0DB58ZX Excision of Esophagus, Via Natural or Artificial Opening Endoscopic, Diagnostic (ICD-10-PCS; principal; 2024-03-03 13:00)
PROC: 0DB68ZX Excision of Stomach, Via Natural or Artificial Opening Endoscopic, Diagnostic (ICD-10-PCS; principal; 2024-03-03 13:00)
DX: R10.13 Epigastric pain (principal); Z86.73 Personal history of transient ischemic attack (TIA), and cerebral infarction without residual deficits; R11.0 Nausea; E78.5 Hyperlipidemia, unspecified; E10.22 Type 1 diabetes mellitus with diabetic chronic kidney disease; I12.9 Hypertensive chronic kidney disease with stage 1 through stage 4 chronic kidney disease, or unspecified chronic kidney disease; J45.909 Unspecified asthma, uncomplicated; H35.00 Unspecified background retinopathy; G62.9 Polyneuropathy, unspecified; Z79.4 Long term (current) use of insulin; Z79.899 Other long term (current) drug therapy
CPT/HCPCS: 82947; 88305; 88342; J2704; J7030

== ENCOUNTER 2024-11-14 23:20 | Inpatient (IN) | payer MEDICARE, OTHER ==
[~2024-11-14] VITALS: Ht 172.7 cm; Wt 79.2 kg
[~2024-11-14 23:20] MED LIST changes: +AMIT25; +CINA30; +Calcium Acetat667 MG PO; +FELODIPINE ER10 M1 PO; +GABA100; +HUMALOG MI100 UNIT/5; +HUMALOG100 UNIT/1; +LIDO5TO; +MINO2.5; -NS 1,000 ML IV ONE; -Novolog100 UNIT/2 SC; +ONDA4ODT; +Ropinirole HCl0.5 MG; +Vitamin D1000 UNI1; +[UNRECOGNIZED DRUG - OTHER]
[2024-11-15] VITALS (18 sets, daily range): BP systolic 114–173; BP diastolic 46–85
[2024-11-15 00:02] LABS: BASOPHILS ABSOLUTE AUTO 0.04 K/mm3 (0.00-0.23); BASOPHILS PERCENT AUTO 0 % (0-2); EOSINOPHILS ABSOLUTE AUTO 0.08 K/mm3 (0.00-0.68); EOSINOPHILS PERCENT AUTO 1 % (0-6); Hematocrit 33.8 % (37.0-53.0); Hemoglobin 11.1 g/dL (13.5-17.5); IMMATURE GRAN ABSOLUTE AUTO 0.07 K/mm3 (0.00-0.10); IMMATURE GRAN PERCENT AUTO 1 % (0-1); LYMPHOCYTES ABSOLUTE AUTO 0.45 K/mm3 (0.84-5.20); LYMPHOCYTES PERCENT AUTO 3 % (21-46); MONOCYTES ABSOLUTE AUTO 0.75 K/mm3 (0.16-1.47); MONOCYTES PERCENT AUTO 6 % (4-13); Mean Corpuscular HGB 33.2 pg (26.0-34.0); Mean Corpuscular HGB Conc 32.8 g/dL (31.5-36.5); Mean Corpuscular Volume 101 fL (80-100); Mean Platelet Volume 10.7 fL (9.1-12.4); NEUTROPHILS ABSOLUTE AUTO 11.68 K/mm3 (1.96-9.15); NEUTROPHILS PERCENT AUTO 90 % (41-73); Platelet Count 226 K/mm3 (150-400); RDW Coefficient Variation 14.2 % (11.7-14.2); Red Blood Cell Count 3.34 M/mm3 (4.30-5.90); White Blood Cell Count 13.07 K/mm3 (4.00-11.30)
[2024-11-15 00:29] LABS: Influenza A, PCR NEGATIVE (NEGATIVE); Influenza B, PCR NEGATIVE (NEGATIVE); SARS-Cov-2 (COVID-19) PCR, MMC NEGATIVE (NEGATIVE)
[2024-11-15] MEDS ORDERED: Cefepime HCl 1,000 MG in NS 100 ML IV ONE (00:30)
[2024-11-15 00:38] LABS: Resp Syncytial Virus, PCR POSITIVE (NEGATIVE)
[2024-11-15 00:41] LABS: Albumin, Blood 4.1 g/dL (3.4-5.0); Bilirubin, Total 0.5 mg/dL (0.1-1.0); Bun/Creatinine Ratio 5.8 (12.0-20.0); Creatinine, Blood 11.6 mg/dL (0.60-1.20); Globulin, Blood 4.1 g/dL (2.2-4.0); Potassium, Blood 6.5 mmol/L (3.5-5.5); Total Protein, Blood 8.2 g/dL (6.4-8.2)
[2024-11-15] MEDS ORDERED: Vancomycin HCL 1,500 MG in NS 250 ML IV ONE (01:30)
[2024-11-15] MEDS ORDERED: Magnesium Hydroxide Conc 10 ML UDC PO PRN (02:35)
[2024-11-15] MEDS ORDERED: Insulin Regular 100 Unit/ML 1ML Dose IV ONE ×2 (02:35→03:00)
[2024-11-15] MEDS ORDERED: Metoclopramide HCl 5MG / ML 2ML Vial IV PRN (02:35)
[2024-11-15] MEDS ORDERED: FLU VACC TS2024-25(6MOS UP)/PF 45 MCG/0.5 ML SYRINGE IM ONE (02:40)
[2024-11-15 02:49] LABS: C-REACTIVE PROTEIN, EXT RANGE 1.02 mg/dL (0.000-0.300); Magnesium, Blood 2.3 mg/dL (1.6-2.4)
[2024-11-15] MEDS ORDERED: Azithromycin 500 MG in NS 250 ML IV SCH (02:57)
[2024-11-15] MEDS ORDERED: NS 250 ML IV ONE (04:40)
[2024-11-15] MEDS ORDERED: Insulin Regular 100 UNIT/ML 10ML Vial IV ONE (04:55)
[2024-11-15] MEDS ORDERED: Insulin Glargine-Yfgn 100 Unit/mL 3 ML SYR SC SCH (05:00)
[2024-11-15 06:33] LABS: Albumin, Blood 3.7 g/dL (3.4-5.0); Anion Gap 15 mmol/L (3-11); Blood Urea Nitrogen 73 mg/dL (8-24); Bun/Creatinine Ratio 5.9 (12.0-20.0); CO2, Blood 24 mmol/L (21-32); Calcium, Blood 8.8 mg/dL (8.5-10.1); Chloride, Blood 100 mmol/L (98-108); Glomerular Filtration Rate 5 (60-); Glucose, Blood 254 mg/dL (70-99); Phosphorus, Blood 2.8 mg/dL (2.5-4.9); Potassium, Blood 5.9 mmol/L (3.5-5.5); Sodium, Blood 133 mmol/L (136-145)
--- NOTE | 2024-11-15 07:11 | NUR ---
SHIFT SUMMARY PT ARRIVES TO PCU 3 FROM ER VIA GURNEY AT 0340. PT IS ORIENTED TO ROOM AND CALL LIGHT. PT IS A&OX4. NORMOTENSIVE, SR 80'S, ON 6L NC SATS >92%. FEBRILE TMAX 99.1. DENIES PAIN. SBA FOR LINE MANAGEMENT. TOLERATING A CONS CARB/RENAL DIET. PT IS A HEMODIALYSIS PT, AND IS ANURIC. NO BM THIS SHIFT. VIN FISTULA. BED IN LOWEST POSITION, CALL LIGHT WITHIN REACH. DROPLET PRECAUTIONS MAINTAINED FOR RSV. CONSULT CALLED TO DR. Connell THIS MORNING.
[2024-11-15] MEDS ORDERED: Insulin Human Lispro 100 Units/ML 3ML Syringe SC SCH ×2 (07:30→08:30)
[2024-11-15] MEDS ORDERED: Lactobacil 2-S.Thermo-Bifido 1 1 Cap PO SCH (09:00)
[2024-11-15] MEDS ORDERED: CefTRIAXone Sodium 1,000 MG in NS 100 ML IV SCH (09:00)
[2024-11-15] MEDS ORDERED: Sennosides 8.6 MG Tab PO SCH (09:00)
[2024-11-15] MEDS ORDERED: Heparin Sodium 5000 Units/ML 1ML MDV SC SCH (09:00)
[2024-11-15] MEDS ORDERED: Acetaminophen 325 MG TABLET PO PRN (12:55)
--- NOTE | 2024-11-15 13:23 | NUR ---
UPDATE PT TO DIAYLSIS THIS AM. DIALYSIS COMPLETE, PT RETURNED TO ROOM, 3L OFF PER REPORT. PT FEBRILE, SEE VITALS. TYLENOL GIVEN. PT SOB, SATTING 70'S UPON RETURNING TO ROOM. INCREASED 02 FROM 6L TO 15L. RT CALLED TO ROOM. RT ASKING FOR ABG. CALL PLACED TO MD HAYES. MD HAYES W/ ORDERS FOR ABG.
[2024-11-15 13:30] LABS: PCO2 Arterial 38.7 mmHg (35-45); PO2 Arterial 66.1 mmHg (80-100); pH Blood Arterial 7.47 (7.35-7.45)
[2024-11-15] MEDS ORDERED: Piperacillin/Tazobactam Sod 4.5 GM in NS 100 ML IV SCH (14:00)
--- NOTE | 2024-11-15 14:56 | NUR ---
"Spiritual Care | Pt. Request Pt. is awake in bed and welcomes my visit. No other visitors are present. Pt. is pleasant. Facilitated a lengthy life review and consider matters of berta and belief. Pt. displays evidence of engagement and trust. Prayed with the Pt. {t. verbalized gratitude for the spiritual care visit."
[2024-11-15] MEDS ORDERED: GABA100 PO (18:49)
[2024-11-15] MEDS ORDERED: MINO2.5 PO (18:51)
[2024-11-15] MEDS ORDERED: LOSA50 PO (18:52)
[2024-11-15] MEDS ORDERED: Ondansetron 4 MG TAB PO PRN (20:35)
[2024-11-15] MEDS ORDERED: Gabapentin 100 MG Cap PO SCH (21:00)
[2024-11-16] VITALS (9 sets, daily range): BP systolic 129–177; BP diastolic 63–98
--- NOTE | 2024-11-16 00:27 | NUR ---
SHIFT NOTE REPORT RECIEVED FROM DAY SHIFT NURSE. SHORTLY AFTER REPORT, THIS NURSE NOTIFIED PTs SPO2 WAS READING IN THE 80s. UPON INVESTIGATION, PT WAS RETURNING TO BED, ASSISTED BY SIGNIFICANT OTHER, AFTER HAVING GONE TO THE RESTROOM. PT HAD REMOVED HIGH FLOW NASAL CANULA AND WAS IN THE 70s FOR SPO2. THIS NURSE PUT HIGH FLOW BACK ONTO PT AND HE IMMEDIATELY RECOVERED TO THE LOW 90s. WHILE COMING IN AND OUT OF THE ROOM FOR MED PASSES AND REPLACING AN IV, PTs O2 SATS CONTINUED TO DECREASE. THIS NURSE INCREASED HIGH FLOW NASAL CANNULA GRADUALLY UNTIL HAVING INCREASED TO 15LPM, AT WHICH POINT PT REMAINED IN LOW 90s TO HIGH 80s FOR SATURATION. RESPIRATORY WAS CONTACTED AND CAME TO BEDSIDE TO ASSIST IN EVALUATION. UPON EVALUATION, IT WAS DETERMINED THE BEST COURSE OF ACTION WOULD BE TO PUT PT ONTO BIPAP. AFTER ORDER WAS PUT IN BY PHYSICIAN, BIPAP WAS APPLIED TO PT AND HE IMPROVED SIGNIFICANTLY. WILL CONTINUE TO MONITOR FOR REMAINDER OF SHIFT.
[2024-11-16 03:42] LABS: BASOPHILS ABSOLUTE AUTO 0.04 K/mm3 (0.00-0.23); BASOPHILS PERCENT AUTO 0 % (0-2); EOSINOPHILS ABSOLUTE AUTO 0.01 K/mm3 (0.00-0.68); EOSINOPHILS PERCENT AUTO 0 % (0-6); Hematocrit 29.4 % (37.0-53.0); IMMATURE GRAN ABSOLUTE AUTO 0.04 K/mm3 (0.00-0.10); IMMATURE GRAN PERCENT AUTO 0 % (0-1); LYMPHOCYTES ABSOLUTE AUTO 0.92 K/mm3 (0.84-5.20); LYMPHOCYTES PERCENT AUTO 8 % (21-46); MONOCYTES ABSOLUTE AUTO 0.81 K/mm3 (0.16-1.47); MONOCYTES PERCENT AUTO 7 % (4-13); Mean Corpuscular HGB 34.1 pg (26.0-34.0); Mean Corpuscular Volume 100 fL (80-100); Mean Platelet Volume 10.2 fL (9.1-12.4); NEUTROPHILS ABSOLUTE AUTO 9.81 K/mm3 (1.96-9.15); NEUTROPHILS PERCENT AUTO 84 % (41-73); Platelet Count 174 K/mm3 (150-400); RDW Coefficient Variation 14.4 % (11.7-14.2); RDW Standard Deviation 51.5 fL (35.1-46.3); Red Blood Cell Count 2.93 M/mm3 (4.30-5.90); White Blood Cell Count 11.63 K/mm3 (4.00-11.30)
[2024-11-16 03:48] LABS: Albumin, Blood 3.1 g/dL (3.4-5.0); Anion Gap 16 mmol/L (3-11); Blood Urea Nitrogen 66 mg/dL (8-24); Bun/Creatinine Ratio 6.6 (12.0-20.0); CO2, Blood 25 mmol/L (21-32); Calcium, Blood 8.4 mg/dL (8.5-10.1); Chloride, Blood 99 mmol/L (98-108); Creatinine, Blood 9.97 mg/dL (0.60-1.20); Glomerular Filtration Rate 6 (60-); Glucose, Blood 205 mg/dL (70-99); Phosphorus, Blood 5.6 mg/dL (2.5-4.9); Potassium, Blood 5.7 mmol/L (3.5-5.5); Sodium, Blood 134 mmol/L (136-145); Vancomycin, Random 16.7 ug/mL
--- NOTE | 2024-11-16 06:05 | NUR ---
SHIFT SUMMARY PT HAS TOLERATED NIGHT WELL. PT PUT ONTO BIPAP AT BEGINNING OF SHIFT AND HAS HAD IMPROVEMENT TO SPO2 LEVEL AND LUNG SOUNDS. PT HAS TOLERATED BIPAP THROUGHOUT EVENING. WILL CONTINUE TO MONITOR UNTIL REPORT PASSED TO DAY SHIFT TEAM.
[2024-11-16] MEDS ORDERED: Azithromycin 250 MG Tab PO SCH (07:00)
[2024-11-16] MEDS ORDERED: Insulin Human Lispro 100 Units/ML 3ML Syringe SC SCH ×2 (07:30→16:30)
[2024-11-16] MEDS ORDERED: Sodium Zirconium Cyclosilicate 10 GM Packet PO SCH (11:30)
--- NOTE | 2024-11-16 11:53 | NUR ---
Update Pt transitioned from bipap to 10L hi-anita NC this am w/ NC able to be titrated to 5L. Pt tolerated breakfast well. About half an hour later, pt SOB w/ labored breathing while at rest, lying in bed. Bipap reapplied. Pt then self removing bipap for cough producing thick clear w/ red sputum. Pt quickly desat to 63%. This RN promply to rm at sound of bipap alarming & spo2 alarming. Pt color momin. Pt not fully alert. Bipap reapplied & this RN remained w/ pt until spo2 > 90%. RT to rm w/ transition from bipap to airvo: 50L 60%. Pt tolerating airvo for short amount of time until respirations again became labored. Pt back on bipap. MD Ojeda updated on respiratory status. MD Ojeda also updated on pt CBG still elevated. w/ order for increase in basal rate by 1 unit on pt insulin pump. Pt BP also elevated. notified pt home BP medication not ordered. PT w/ elevated temp. PRN po acetaminophen provided per eMAR.
[2024-11-16 12:31] LABS: Bicarbonate Venous 23.2 mmol/L (24.0-30.0); PCO2 Venous 30.6 mmHg (38-42); pH Blood Venous 7.46 (7.34-7.37)
[2024-11-16] MEDS ORDERED: Insulin Glargine-Yfgn 100 Unit/mL 3 ML SYR SC SCH (14:00)
[2024-11-16] MEDS ORDERED: Carvedilol 6.25 MG Tab PO SCH (14:00)
[2024-11-16] MEDS ORDERED: AmLODIPine Besylate 5 MG Tab PO SCH (14:00)
--- NOTE | 2024-11-16 16:59 | NUR ---
PATIENT SUMMURY: PATIENT IS ALERT AND ORIENTED X4. CURRENLY ON AIRVO HIGH FLOW NASAL CANULA WITH OXYGEN SATURATION ABOVE 90%.BLOOD PRESSURE AND BLOOD GLUCOSE ELEVATED EARLIER.PHYSICIAN NOTIFIED WITH NEW ORDERS. PATIENT USING HIS INSULIN PUMP PER PHYSICIAN. BLOOD PRESSURE AND BLOOD GLUCOSE IS IMPROVING.
[2024-11-16] MEDS ORDERED: Insulin Glargine-Yfgn 100 Unit/mL 3 ML SYR SC ONE (18:00)
--- NOTE | 2024-11-16 23:42 | NUR ---
PT NOTIFIED STAFF THAT HIS HOME INSULIN PUMP IS ALMOST OUT OF INSULIN AND HE IS UNABLE TO REFILL HIS PUMP UNTIL TOMORROW AT THE SOONEST. PATIENT REPORTS THAT HE WAS TOLD BY DR. HAYES THAT STAFF IS TO REFILL HIS HOME PUMP FOR HIM ONCE IT IS EMPTY. NOTIFIED PT THAT STAFF IS UNABLE TO MANAGE, ALTER, OR REFILL HOME PUMP. SPOKE WITH FELIZ ABOUT CONCERN. FELIZ ORDERED Q4 CBG CHECKS WITH Q4 MEDIUM SCALE HUMALOG COVERAGE AND TO LET HOME PUMP RUN DRY. ORDERS INPUT. CONTINUING TO MONITOR.
[2024-11-17] VITALS (30 sets, daily range): BP systolic 106–168; BP diastolic 53–76
[2024-11-17] MEDS ORDERED: Insulin Human Lispro 100 Units/ML 3ML Syringe SC SCH
[2024-11-17 03:55] LABS: BASOPHILS ABSOLUTE AUTO 0.02 K/mm3 (0.00-0.23); BASOPHILS PERCENT AUTO 0 % (0-2); EOSINOPHILS ABSOLUTE AUTO 0.05 K/mm3 (0.00-0.68); EOSINOPHILS PERCENT AUTO 1 % (0-6); Hematocrit 24.9 % (37.0-53.0); Hemoglobin 8.4 g/dL (13.5-17.5); IMMATURE GRAN ABSOLUTE AUTO 0.06 K/mm3 (0.00-0.10); IMMATURE GRAN PERCENT AUTO 1 % (0-1); LYMPHOCYTES ABSOLUTE AUTO 0.84 K/mm3 (0.84-5.20); LYMPHOCYTES PERCENT AUTO 8 % (21-46); MONOCYTES ABSOLUTE AUTO 0.63 K/mm3 (0.16-1.47); MONOCYTES PERCENT AUTO 6 % (4-13); Mean Corpuscular HGB 33.5 pg (26.0-34.0); Mean Corpuscular HGB Conc 33.7 g/dL (31.5-36.5); Mean Corpuscular Volume 99 fL (80-100); Mean Platelet Volume 10.9 fL (9.1-12.4); NEUTROPHILS ABSOLUTE AUTO 8.73 K/mm3 (1.96-9.15); NEUTROPHILS PERCENT AUTO 85 % (41-73); Platelet Count 138 K/mm3 (150-400); RDW Coefficient Variation 14.1 % (11.7-14.2); RDW Standard Deviation 50.4 fL (35.1-46.3); Red Blood Cell Count 2.51 M/mm3 (4.30-5.90); White Blood Cell Count 10.33 K/mm3 (4.00-11.30)
[2024-11-17 04:44] LABS: Albumin, Blood 2.9 g/dL (3.4-5.0); Anion Gap 15 mmol/L (3-11); Blood Urea Nitrogen 99 mg/dL (8-24); Bun/Creatinine Ratio 7.6 (12.0-20.0); CO2, Blood 25 mmol/L (21-32); Calcium, Blood 8.6 mg/dL (8.5-10.1); Chloride, Blood 95 mmol/L (98-108); Glomerular Filtration Rate 5 (60-); Glucose, Blood 84 mg/dL (70-99); Phosphorus, Blood 4.4 mg/dL (2.5-4.9); Potassium, Blood 4.1 mmol/L (3.5-5.5); Sodium, Blood 131 mmol/L (136-145); Vancomycin, Random 15.6 ug/mL
[2024-11-17] MEDS ORDERED: Insulin Human Lispro 100 Units/ML 3ML Syringe SC ONE (05:25)
--- NOTE | 2024-11-17 05:26 | NUR ---
SPOKE WITH DR. HADDAD. PT BLOOD SUGAR HAS INCREASED BY ~200 SINCE IT WAS DOWN TO 70s THIS MORNING. NEXT DOSE OF INSULIN NOT DUE UNTIL 0800. SHARED CONCERN WITH DR. HADDAD THAT CBG WOULD CONTINUE TO TREND UP UNTIL 0800 HUMALOG COVERAGE. CATIE ORDERED OT DOSE OF MEDIUM SCALE COVERAGE BASED ON MOST RECENT BLOOD SUGAR. ORDER INPUT, AWAITING VERIFICATION.
--- NOTE | 2024-11-17 06:08 | NUR ---
SHIFT SUMMARY. SHIFT HAS GONE WELL OVERALL. PT AOX4, PLEASANT, COOPERATIVE WITH CARE, CALLS APPROPRIATELY FOR ASSISTANCE. STEADY SBA TRANSFER OUT OF BED. HAVE BEEN USING COMMODE THROUGHOUT SHIFT D/T O2 DEMANDS. O2 DEMANDS HAVE REMAINED STABLE WITH PT SWITCHING BACK AND FORTH BETWEEN AIRVO AND BIPAP BUT MAINTAINING >92% ON BOTH. BLOOD SUGAR HAS BEEN AN ISSUE THROUGHOUT LATTER HALF OF SHIFT, SEE PREVIOUS NOTE FOR EXPANDED DETAILS. PT HAS BEEN BATTLING FEVERS THROUGHOUT SHIFT. ADMINISTERED PRN TYLENOL ONCE THUS FAR, REACHED HIGH OF 102.9. HAS SINCE COME DOWN TO <100 BUT MOST RECENTLY WAS 100.7. CONTINUING TO MONITOR. PT HAS DENIED PAIN THROUGHOUT SHIFT. VITALS HAVE REMAINED STABLE. BED LOCKED IN LOWEST POSITION. CALL LIGHT LEFT WITHIN REACH. CONTINUING TO MONITOR.
[2024-11-17] MEDS ORDERED: Insulin Glargine-Yfgn 100 Unit/mL 3 ML SYR SC SCH (09:00)
[2024-11-17] MEDS ORDERED: Vancomycin HCL 1,250 MG in NS 250 ML IV SCH (12:00)
--- NOTE | 2024-11-17 12:46 | NUR ---
PATIENT NOTE: PATIENT WENT TO DIALYSIS. ON 15 LITERS OXYMASK. OXYGEN SATURATION ABOVE 90.
[2024-11-17] MEDS ORDERED: Epoetin Alfa-EPBX 10,000 Unit/ML 1ML Vial IV SCH (16:00)
--- NOTE | 2024-11-17 16:49 | NUR ---
BACK TO PCU FROM DIALYSIS AT THIS TIME.
[2024-11-18 03:33] VITALS: BP 152/71
[2024-11-18 04:23] LABS: BASOPHILS ABSOLUTE AUTO 0.02 K/mm3 (0.00-0.23); BASOPHILS PERCENT AUTO 0 % (0-2); EOSINOPHILS ABSOLUTE AUTO 0.01 K/mm3 (0.00-0.68); EOSINOPHILS PERCENT AUTO 0 % (0-6); Hematocrit 27.1 % (37.0-53.0); Hemoglobin 9.1 g/dL (13.5-17.5); IMMATURE GRAN ABSOLUTE AUTO 0.03 K/mm3 (0.00-0.10); IMMATURE GRAN PERCENT AUTO 0 % (0-1); LYMPHOCYTES ABSOLUTE AUTO 0.57 K/mm3 (0.84-5.20); LYMPHOCYTES PERCENT AUTO 8 % (21-46); MONOCYTES ABSOLUTE AUTO 0.29 K/mm3 (0.16-1.47); MONOCYTES PERCENT AUTO 4 % (4-13); Mean Corpuscular HGB 33.1 pg (26.0-34.0); Mean Corpuscular HGB Conc 33.6 g/dL (31.5-36.5); Mean Corpuscular Volume 99 fL (80-100); Mean Platelet Volume 11.6 fL (9.1-12.4); NEUTROPHILS ABSOLUTE AUTO 6.51 K/mm3 (1.96-9.15); NEUTROPHILS PERCENT AUTO 88 % (41-73); Platelet Count 128 K/mm3 (150-400); RDW Coefficient Variation 14.3 % (11.7-14.2); RDW Standard Deviation 51.1 fL (35.1-46.3); Red Blood Cell Count 2.75 M/mm3 (4.30-5.90); White Blood Cell Count 7.43 K/mm3 (4.00-11.30)
--- NOTE | 2024-11-18 04:39 | NUR ---
SHIFT SUMMARY. SHIFT HAS GONE WELL OVERALL. PT AOX4, COOPERATIVE, PLEASANT, ABLE TO MAKE NEEDS KNOWN. HAS BEEN ABLE TO REST COMFORTABLY THROUGHOUT MOST OF SHIFT. VITALS HAVE REMAINED STABLE. LATE IN THE EVENING LAST NIGHT, PT WAS COMPLAINING OF DIZZINESS. BP REMAINED STABLE WITH MAP >65 AND SBP >100. AFTER SOME TIME OF REST PT REPORTED FEELING HAD RESOLVED AND PT HAS BEEN FEELING WELL SINCE. O2 DEMANDS HAVE REMAINED STABLE THROUGHOUT SHIFT WITH PT REMAINING ON AIRVO THROUGHOUT SHIFT THUS FAR. CONTINUES TO RUN SINUS ON TELE. PT WAS RUNNING FEVER EARLY IN SHIFT WITH TEMPERATURE PEAKING AT >103. ADMINISTERED PRN TYLENOL AND SINCE THAT TIME TEMP HAS COME DOWN TO <98. SHIFT OTHERWISE UNREMARKABLE. BED LOCKED IN LOWEST POSITION. CALL LIGHT LEFT WITHIN REACH. CONTINUING TO MONITOR.
[2024-11-18 04:48] LABS: Iron Serum 15 ug/dL (65-175); Percent Saturation 7.9 % (20.0-50.0); Total Iron Binding Capacity 191 ug/dL (250-450)
[2024-11-18 05:06] LABS: Alanine Aminotransfer (ALT/SGP 140 U/L (12-78); Albumin/Globulin Ratio 0.7 (0.8-1.8); Alk Phos 92 U/L (50-136); Anion Gap 15 mmol/L (3-11); Aspartate Aminotrans (AST/SGOT 150 U/L (12-37); Bilirubin, Total 1.1 mg/dL (0.1-1.0); Blood Urea Nitrogen 55 mg/dL (8-24); Bun/Creatinine Ratio 6.3 (12.0-20.0); CO2, Blood 26 mmol/L (21-32); Calcium, Blood 8.3 mg/dL (8.5-10.1); Chloride, Blood 92 mmol/L (98-108); Creatinine, Blood 8.73 mg/dL (0.60-1.20); Globulin, Blood 4.4 g/dL (2.2-4.0); Glomerular Filtration Rate 7 (60-); Glucose, Blood 281 mg/dL (70-99); Phosphorus, Blood 6.4 mg/dL (2.5-4.9); Sodium, Blood 129 mmol/L (136-145); Total Protein, Blood 7.4 g/dL (6.4-8.2); Vancomycin, Random 33.3 ug/mL
[2024-11-18 08:07] VITALS: BP 160/69
[2024-11-18] MEDS ORDERED: Insulin Glargine-Yfgn 100 Unit/mL 3 ML SYR SC SCH (09:00)
[2024-11-18 12:12] VITALS: BP 117/59
[2024-11-18 16:11] VITALS: BP 145/65
--- NOTE | 2024-11-18 17:30 | NUR ---
End of Shift Pt A&O x4. VSS. Spo2 > 92% now on 1-2L NC. Monitor showing SR. Pt's insulin pump empty. Pt s/o to possibly bring new vial for insulin pump. CBG's covered per ordered insulin pen sliding scale coverage per eMAR. No events this shift. Pt reports feeling overall improved.
[2024-11-18 20:02] VITALS: BP 148/69
[2024-11-18 23:37] VITALS: BP 136/66
[2024-11-19] VITALS (17 sets, daily range): BP systolic 134–167; BP diastolic 59–79
[2024-11-19 04:55] LABS: BASOPHILS ABSOLUTE AUTO 0.02 K/mm3 (0.00-0.23); BASOPHILS PERCENT AUTO 0 % (0-2); EOSINOPHILS ABSOLUTE AUTO 0.15 K/mm3 (0.00-0.68); EOSINOPHILS PERCENT AUTO 3 % (0-6); Hematocrit 24.5 % (37.0-53.0); Hemoglobin 8.1 g/dL (13.5-17.5); IMMATURE GRAN ABSOLUTE AUTO 0.02 K/mm3 (0.00-0.10); IMMATURE GRAN PERCENT AUTO 0 % (0-1); LYMPHOCYTES ABSOLUTE AUTO 0.98 K/mm3 (0.84-5.20); LYMPHOCYTES PERCENT AUTO 18 % (21-46); MONOCYTES ABSOLUTE AUTO 0.24 K/mm3 (0.16-1.47); MONOCYTES PERCENT AUTO 4 % (4-13); Mean Corpuscular HGB 32.5 pg (26.0-34.0); Mean Corpuscular HGB Conc 33.1 g/dL (31.5-36.5); Mean Corpuscular Volume 98 fL (80-100); Mean Platelet Volume 12.1 fL (9.1-12.4); NEUTROPHILS ABSOLUTE AUTO 4.13 K/mm3 (1.96-9.15); NEUTROPHILS PERCENT AUTO 75 % (41-73); Platelet Count 117 K/mm3 (150-400); RDW Coefficient Variation 14.3 % (11.7-14.2); RDW Standard Deviation 51.1 fL (35.1-46.3); Red Blood Cell Count 2.49 M/mm3 (4.30-5.90); White Blood Cell Count 5.54 K/mm3 (4.00-11.30)
[2024-11-19 05:44] LABS: Albumin, Blood 2.6 g/dL (3.4-5.0); Albumin/Globulin Ratio 0.6 (0.8-1.8); Bilirubin, Total 0.8 mg/dL (0.1-1.0); Bun/Creatinine Ratio 7.2 (12.0-20.0); Calcium, Blood 8.1 mg/dL (8.5-10.1); Creatinine, Blood 11.4 mg/dL (0.60-1.20); Globulin, Blood 4.2 g/dL (2.2-4.0); Phosphorus, Blood 5.8 mg/dL (2.5-4.9); Potassium, Blood 3.9 mmol/L (3.5-5.5); Total Protein, Blood 6.8 g/dL (6.4-8.2)
--- NOTE | 2024-11-19 05:58 | NUR ---
SHIFT SUMMARY PATIENT ALERT, ORIENTED x4. ABLE TO MAKE NEEDS KNOWN. PATIENT ON 1L NC WITH SPO2 >90%. ON TELE, SR. BP STABLE. INDEPENDENT IN THE ROOM. TOLERATING PO. ADEQUATE OUTPUT DURING THE NIGHT. MEDICATED x1 FOR FEVER WITH RELIEF. NO OTHER SIGNIFICANT CHANGES DURING THE NIGHT. WILL REPORT TO DAY SHIFT RN.
[2024-11-19] MEDS ORDERED: Insulin Glargine-Yfgn 100 Unit/mL 3 ML SYR SC SCH (09:00)
--- NOTE | 2024-11-19 10:09 | NUR ---
UPDATE: DIALYSIS IN ROOM
--- NOTE | 2024-11-19 16:29 | NUR ---
UPDATE: HD COMPLETED APPROX 1500. 4L OF FLUID REMOVED. VITAL SIGNS REMAIN STABLE.
--- NOTE | 2024-11-19 16:46 | NUR ---
SHIFT SUMMARY: PT ALERT AND ORIENTED X4, ABLE TO FOLLOW COMMANDS AND MAKE NEEDS KNOWN. STRENGTH EQUAL BILATERALLY. COOPERATIVE WITH CARE. BP AND HR STABLE. REMAINS ON 2-3L NC SPO2 >96%. LUNG SOUNDS DIM IN BASES. ABD SOFT, NON TENDER, BOWEL SOUNDS +. PULSES STRONG AND EQUAL THROUGHOUT. PT WITH COMPLAINTS OF "FEELING OVERLOADED" THIS AM, PT ON DYSPENIC ON AM ASSESSMENT, REQUIRING 4-5L NC. CALL PLACED TO [employer]IDS [employer] ATTENDANT, ORDERES RECEIVED FOR 1500ML FLUID RESTRICTION AND PT TO RECEIVED HEMODIALYSIS. HD COMPLETED APPROX 1500, 4L REMOVED. LUNG SOUNDS REMAIN DIM IN BASES, PT DENIES SOB, CURRENTLY REQUIRING 2L NC. FAMILY AT BEDSIDE THIS AFTERNOON. CBG RANGED FROM 180-350 THIS SHIFT, COVERED PER EMAR. PT IND IN ROOM. BED IN LOW, CALL LIGHT IN REACH, WILL REPORT TO ONCOMING RN.
--- NOTE | 2024-11-19 19:20 | NUR ---
[place] of Care: Report received from day nurse Juan RN. Patient sitting on EOB eating supper. No complaints of pain. Appears comfortable. Continue Care.
[2024-11-20] VITALS (19 sets, daily range): BP systolic 124–164; BP diastolic 67–80
[2024-11-20] MEDS ORDERED: Insulin Human Lispro 100 Units/ML 3ML Syringe SC ONE ×2 (01:00→08:00)
[2024-11-20] MEDS ORDERED: Insulin Human Lispro 100 Units/ML 3ML Syringe SC SCH ×3 (01:00→16:30)
[2024-11-20 03:29] LABS: BASOPHILS ABSOLUTE AUTO 0.03 K/mm3 (0.00-0.23); BASOPHILS PERCENT AUTO 1 % (0-2); EOSINOPHILS ABSOLUTE AUTO 0.18 K/mm3 (0.00-0.68); EOSINOPHILS PERCENT AUTO 4 % (0-6); Hematocrit 25.1 % (37.0-53.0); Hemoglobin 8.7 g/dL (13.5-17.5); IMMATURE GRAN ABSOLUTE AUTO 0.02 K/mm3 (0.00-0.10); IMMATURE GRAN PERCENT AUTO 1 % (0-1); LYMPHOCYTES PERCENT AUTO 19 % (21-46); MONOCYTES PERCENT AUTO 5 % (4-13); Mean Corpuscular HGB 33.6 pg (26.0-34.0); Mean Corpuscular HGB Conc 34.7 g/dL (31.5-36.5); Mean Corpuscular Volume 97 fL (80-100); NEUTROPHILS ABSOLUTE AUTO 2.95 K/mm3 (1.96-9.15); NEUTROPHILS PERCENT AUTO 71 % (41-73); Platelet Count 132 K/mm3 (150-400); RDW Coefficient Variation 14.3 % (11.7-14.2); RDW Standard Deviation 50.5 fL (35.1-46.3); Red Blood Cell Count 2.59 M/mm3 (4.30-5.90); White Blood Cell Count 4.18 K/mm3 (4.00-11.30)
[2024-11-20 04:02] LABS: Albumin, Blood 2.6 g/dL (3.4-5.0); Albumin/Globulin Ratio 0.6 (0.8-1.8); Bilirubin, Total 0.8 mg/dL (0.1-1.0); Bun/Creatinine Ratio 7.9 (12.0-20.0); Calcium, Blood 8.3 mg/dL (8.5-10.1); Creatinine, Blood 9.08 mg/dL (0.60-1.20); Globulin, Blood 4.5 g/dL (2.2-4.0); Phosphorus, Blood 5.4 mg/dL (2.5-4.9); Potassium, Blood 4.4 mmol/L (3.5-5.5); Total Protein, Blood 7.1 g/dL (6.4-8.2)
[2024-11-20] MEDS ORDERED: Insulin Regular 100 UNIT/ML 10ML Vial IV ONE (04:55)
--- NOTE | 2024-11-20 06:00 | NUR ---
PATIENT HAS BEEN HYPERGLYCEMIC ALL SHIFT. (SEE LAB RESULTS). BLOOD SUGARS FROM [phone]. RESIDENT UPDATED NEW ORDERS RECEIVED. ROLANDO HAS OWN GLUCOSE MONITOR AND INSULIN PUMP WHICH IS CURRENTLY EMPTY AMD UNABLE TO FILL. ANURIC DIALYSIS IS ON . CONTINUE TO MONITOR GLUCOSE AND LAB VALUES. PATIENT APPEAREDD COMFORTABLE.
--- NOTE | 2024-11-20 07:45 | NUR ---
INITIAL ASSESSMENT: Patient is awake sitting up on the edge of the bed. He is alert and oriented x4. Denies pain at this time. HRR, VSS. He is SR in the 80s. LS DIM T/O, he states he is still coughing up a minimal amount of thick post sputum. BT+, pt states he had a BM yesterday-he declined his stool softner this am. PPP, 2+ edema noted to BLE this AM. His BG is 464 this AM, Dr. Wright notified-see new orders. Patient given 20 units Humalog and 24 units glargine. Will reassess BG in 1 hr.
[2024-11-20] MEDS ORDERED: Insulin Glargine-Yfgn 100 Unit/mL 3 ML SYR SC SCH (09:00)
--- NOTE | 2024-11-20 13:44 | NUR ---
Update: VSS. Patient is done with HD for the day, per drop wire operator 2L removed today. Pts BG dropped to the 160s while down in Dialysis, snack provided. He has been covered with SS insulin and carb count. Reinforced fluid restriction with the patinet, he verbalizes understanding. He denies other needs at this time. Call light in reach.
--- NOTE | 2024-11-20 17:36 | NUR ---
Summary: Patient has been alert and oriented x4 T/O the shift. No C/O pain. HRR, SR in the 80s, blood pressure has been stable. LS DIM with faint EXP wheezing in the left lobe, this RN attempted to titrate the patient down to RA, his saturations dropped into the high 80s, he has been stable on 1l NC. BT+. PPP, he as 2+ pitting edema to BLE. He did have dialysis today with 2l fluid removed. His blood sugars were high at the start of the shift, with SS and carb count coverage they are down into 150-200. No acute changes this shift, will report to oncoming RN.
[2024-11-21] MEDS ORDERED: Insulin Human Lispro 100 Units/ML 3ML Syringe SC ONE (00:45)
[2024-11-21 03:17] LABS: BASOPHILS ABSOLUTE AUTO 0.02 K/mm3 (0.00-0.23); BASOPHILS PERCENT AUTO 0 % (0-2); EOSINOPHILS ABSOLUTE AUTO 0.34 K/mm3 (0.00-0.68); EOSINOPHILS PERCENT AUTO 8 % (0-6); Hematocrit 27.2 % (37.0-53.0); Hemoglobin 9.3 g/dL (13.5-17.5); IMMATURE GRAN ABSOLUTE AUTO 0.01 K/mm3 (0.00-0.10); IMMATURE GRAN PERCENT AUTO 0 % (0-1); LYMPHOCYTES ABSOLUTE AUTO 1.16 K/mm3 (0.84-5.20); LYMPHOCYTES PERCENT AUTO 26 % (21-46); MONOCYTES ABSOLUTE AUTO 0.29 K/mm3 (0.16-1.47); MONOCYTES PERCENT AUTO 6 % (4-13); Mean Corpuscular HGB 32.5 pg (26.0-34.0); Mean Corpuscular HGB Conc 34.2 g/dL (31.5-36.5); Mean Corpuscular Volume 95 fL (80-100); Mean Platelet Volume 11.5 fL (9.1-12.4); NEUTROPHILS ABSOLUTE AUTO 2.72 K/mm3 (1.96-9.15); NEUTROPHILS PERCENT AUTO 60 % (41-73); Platelet Count 208 K/mm3 (150-400); RDW Coefficient Variation 14.3 % (11.7-14.2); RDW Standard Deviation 49.3 fL (35.1-46.3); Red Blood Cell Count 2.86 M/mm3 (4.30-5.90); White Blood Cell Count 4.54 K/mm3 (4.00-11.30)
[2024-11-21 03:27] LABS: Albumin, Blood 2.8 g/dL (3.4-5.0); Anion Gap 14 mmol/L (3-11); Blood Urea Nitrogen 63 mg/dL (8-24); Bun/Creatinine Ratio 8.1 (12.0-20.0); CO2, Blood 29 mmol/L (21-32); Calcium, Blood 8.7 mg/dL (8.5-10.1); Chloride, Blood 95 mmol/L (98-108); Creatinine, Blood 7.75 mg/dL (0.60-1.20); Glomerular Filtration Rate 8 (60-); Glucose, Blood 194 mg/dL (70-99); Potassium, Blood 3.5 mmol/L (3.5-5.5); Sodium, Blood 134 mmol/L (136-145)
[2024-11-21 07:45] VITALS: BP 179/82
--- NOTE | 2024-11-21 08:00 | NUR ---
INITIAL ASSESSMENT: Patient is awake sitting up on the edge of the bed. He is alert and oriented x4. Denies pain at this time. HRR, SR in the 80s. He is hypertensive with SBP in the 170s, AM meds given-will reassess. LS DIM in the bases, biox is 100% on 1L O2 via NC, patient is titrated to RA saturations remain in the mid to high 90s. BT+. PPP. He has 2+ pitting edema to BLE. He has a fistula to his left UA +Bruit/Thrill. Patient denies other needs at this time. Call light in reach.
[2024-11-21] MEDS ORDERED: Insulin Glargine-Yfgn 100 Unit/mL 3 ML SYR SC SCH ×2 (09:00)
[2024-11-21] MEDS ORDERED: Carvedilol12.5 MG PO (11:07)
[2024-11-21] MEDS ORDERED: VISBIOME 112.51 EACH PO (11:07)
--- NOTE | 2024-11-21 12:32 | NUR ---
DISCHARGE: Patient verbalized understanding of discharge instructions. He was able to discharge with his sig other via WC.
[2024-11-21 13:32] LABS: HEPATITIS B SURFACE ANTIBODY 223.31 IU/L
[2024-11-21 15:47] LABS: HBV CORE ANTIBODIES,TOTAL Negative (Negative)
[2024-11-22 10:37] LABS: HEPATITIS B SURFACE ANTIGEN Negative (Negative)
[2024-11-22 11:14] LABS: HEPATITIS B SURFACE ANTIBODY 243.68 IU/L
[2024-11-22 13:15] LABS: HBV CORE ANTIBODIES,TOTAL Negative (Negative)
[2024-11-22 16:06] LABS: HEPATITIS B SURFACE ANTIGEN Negative (Negative)
== END 2024-11-21 12:37 | disposition home or self-care (01) | DRG 871 ==
LOC: ER 23:20 → ERHOLD 11-15 02:32 → PCU 11-15 02:32
PROVIDERS: Emergency Medicine; Family Medicine; Hospitalist; Internal Medicine; Student in an Organized Health Care Education/Training Program; ADMIT Student in an Organized Health Care Education/Training Program
PROC: 3E03329 Introduction of Other Anti-infective into Peripheral Vein, Percutaneous Approach (ICD-10-PCS; principal; 2024-11-15)
PROC: 4A033R1 Measurement of Arterial Saturation, Peripheral, Percutaneous Approach (ICD-10-PCS; 2024-11-15)
PROC: 5A09357 Assistance with Respiratory Ventilation, Less than 24 Consecutive Hours, Continuous Positive Airway Pressure (ICD-10-PCS; 2024-11-16)
PROC: 5A0935A Assistance with Respiratory Ventilation, Less than 24 Consecutive Hours, High Flow/Velocity Cannula (ICD-10-PCS; 2024-11-16)
PROC: 5A1D70Z Performance of Urinary Filtration, Intermittent, Less than 6 Hours Per Day (ICD-10-PCS; 2024-11-19)
DX: A41.89 Other specified sepsis (principal); J12.1 Respiratory syncytial virus pneumonia; J96.01 Acute respiratory failure with hypoxia; N18.6 End stage renal disease; I12.0 Hypertensive chronic kidney disease with stage 5 chronic kidney disease or end stage renal disease; E78.5 Hyperlipidemia, unspecified; M81.0 Age-related osteoporosis without current pathological fracture; J45.909 Unspecified asthma, uncomplicated; Z99.2 Dependence on renal dialysis; G43.909 Migraine, unspecified, not intractable, without status migrainosus; E87.5 Hyperkalemia; D63.1 Anemia in chronic kidney disease; E10.40 Type 1 diabetes mellitus with diabetic neuropathy, unspecified; M19.90 Unspecified osteoarthritis, unspecified site; E10.22 Type 1 diabetes mellitus with diabetic chronic kidney disease; E10.319 Type 1 diabetes mellitus with unspecified diabetic retinopathy without macular edema; Z98.41 Cataract extraction status, right eye; Z86.73 Personal history of transient ischemic attack (TIA), and cerebral infarction without residual deficits; Z86.711 Personal history of pulmonary embolism; Z91.09 Other allergy status, other than to drugs and biological substances; Z79.4 Long term (current) use of insulin; Z79.899 Other long term (current) drug therapy; Z79.85 Long-term (current) use of injectable non-insulin antidiabetic drugs; Z98.890 Other specified postprocedural states
CPT/HCPCS: 0241U; 36415; 36600; 71045; 71046; 71260; 80053; 80069; 80202; 82010; 82728; 82803; 82947; 83540; 83550; 83605; 83735; 84100; 84145; 85025; 86140; 86704; 87040; 87070; 87205; 87340; 93005; 93010; 94660; 94762; 96365-59; 96375; 99285-25; A9270; J0456; J0692; J0696; J1644; J1815; J2543; J2765; J3370; J7050; Q5106; Q9967

== ENCOUNTER 2025-05-28 17:53 | Emergency (ER) | payer OTHER ==
[~2025-05-28] VITALS: Ht 175.3 cm; Wt 83.9 kg
[~2025-05-28 17:53] MED LIST changes: +Carvedilol12.5 MG PO; +GABA100 PO; +MINO2.5 PO; +VISBIOME 112.51 EACH PO
[2025-05-28 18:24] LABS: BASOPHILS ABSOLUTE AUTO 0.02 K/mm3 (0.00-0.23); BASOPHILS PERCENT AUTO 0 % (0-2); EOSINOPHILS ABSOLUTE AUTO 0.02 K/mm3 (0.00-0.68); EOSINOPHILS PERCENT AUTO 0 % (0-6); Hematocrit 43.0 % (37.0-53.0); Hemoglobin 14.4 g/dL (13.5-17.5); IMMATURE GRAN ABSOLUTE AUTO 0.04 K/mm3 (0.00-0.10); IMMATURE GRAN PERCENT AUTO 0 % (0-1); LYMPHOCYTES ABSOLUTE AUTO 0.15 K/mm3 (0.84-5.20); LYMPHOCYTES PERCENT AUTO 1 % (21-46); MONOCYTES ABSOLUTE AUTO 0.55 K/mm3 (0.16-1.47); MONOCYTES PERCENT AUTO 4 % (4-13); Mean Corpuscular HGB Conc 33.5 g/dL (31.5-36.5); Mean Corpuscular Volume 98 fL (80-100); NEUTROPHILS ABSOLUTE AUTO 11.92 K/mm3 (1.96-9.15); NEUTROPHILS PERCENT AUTO 94 % (41-73); NRBC ABSOLUTE 0.00 K/mm3 (0.00-0.02); NRBC Auto 0.0 /100 WBC (0.0-0.2); Platelet Count 272 K/mm3 (150-400); RDW Coefficient Variation 11.7 % (11.7-14.2); RDW Standard Deviation 42.1 fL (35.1-46.3)
[2025-05-28 18:57] LABS: Alanine Aminotransfer (ALT/SGP 33.0 U/L (12-78); Albumin, Blood 3.2 g/dL (3.4-5.0); Albumin/Globulin Ratio 0.8 (0.8-1.8); Anion Gap 13.0 mmol/L (3-11); Aspartate Aminotrans (AST/SGOT 25.0 U/L (12-37); Bilirubin, Total 0.2 mg/dL (0.1-1.0); Blood Urea Nitrogen 112.0 mg/dL (8-24); CO2, Blood 17.0 mmol/L (21-32); Calcium, Blood 9.2 mg/dL (8.5-10.1); Chloride, Blood 109.0 mmol/L (98-108); Creatinine, Blood 6.52 mg/dL (0.60-1.20); Globulin, Blood 3.9 g/dL (2.2-4.0); Glucose, Blood 147.0 mg/dL (70-99); Potassium, Blood 6.1 mmol/L (3.5-5.5); Sodium, Blood 133.0 mmol/L (136-145); Total Protein, Blood 7.1 g/dL (6.4-8.2)
[2025-05-28] MEDS ORDERED: Albuterol 2.5 MG/3 ML VIAL INH SCH (19:00)
[2025-05-28] MEDS ORDERED: Insulin Regular 100 Unit/ML 1ML Dose IV ONE (19:00)
[2025-05-28] MEDS ORDERED: MYCO250 PO (19:31)
[2025-05-28] MEDS ORDERED: PROGRAF1 M1 PO (19:32)
[2025-05-28] MEDS ORDERED: PRED5 PO (19:32)
[2025-05-28] MEDS ORDERED: ACYC400 PO (19:33)
[2025-05-28] MEDS ORDERED: LISI5 PO (19:33)
[2025-05-28] MEDS ORDERED: PREVYMIS480 MG PO (19:33)
[2025-05-28] MEDS ORDERED: ASPI325 PO (19:34)
[2025-05-28] MEDS ORDERED: FAMO20 PO (19:35)
[2025-05-28] MEDS ORDERED: MAGNESIUM OXID500 MG PO (19:35)
[2025-05-28] MEDS ORDERED: Phospha 250 Ne250 MG PO (19:36)
[2025-05-28] MEDS ORDERED: Acetaminophen325 M1 PO (21:11)
[2025-05-28] MEDS ORDERED: ROPI.25 PO (21:12)
[2025-05-28] MEDS ORDERED: NS 1,000 ML IV SCH (21:55)
[2025-05-28] MEDS ORDERED: Ondansetron HCl 2 MG / ML 2ML Vial IV ONE (21:55)
[2025-05-29 00:05] VITALS: BP 127/89
[2025-05-31 10:34] LABS: TACROLIMUS BY HPLC-MS/MS 9.1 ng/mL
== END 2025-05-29 00:18 | disposition home or self-care (01) ==
LOC: ER 17:53
PROVIDERS: Emergency Medicine; Student in an Organized Health Care Education/Training Program
DX: E87.5 Hyperkalemia (principal); T86.11 Kidney transplant rejection; E10.22 Type 1 diabetes mellitus with diabetic chronic kidney disease; N18.6 End stage renal disease; M19.90 Unspecified osteoarthritis, unspecified site; G43.909 Migraine, unspecified, not intractable, without status migrainosus; J45.909 Unspecified asthma, uncomplicated; I10 Essential (primary) hypertension; Z79.4 Long term (current) use of insulin; Z79.82 Long term (current) use of aspirin
CPT/HCPCS: 80053; 80197; 82272; 82947; 83690; 84132; 85025; 86850; 86900; 86901; 93005; 93010; 96361; 96374; 96375; 99284-25; A9270; J1815; J1938; J2405; J2919; J7030

== ENCOUNTER 2025-09-07 09:12 | Day surgery (SDC) | payer OTHER ==
[~2025-09-07] VITALS: Ht 172.7 cm; Wt 75.4 kg
[2025-09-07] VITALS (8 sets, daily range): BP systolic 125–144; BP diastolic 68–97
[~2025-09-07 09:12] MED LIST changes: +ACYC400 PO; +ASPI325 PO; +Acetaminophen325 M1 PO; +EpiNEPhrine 1 MG/1 ML 1ML Vial ONE; +FAMO20 PO; +LISI5 PO; +Lidocaine 2% Jelly Uro-Jet ONE; +MAGNESIUM OXID500 MG PO; +MYCO250 PO; -ONDA4ODT; +ONDA4ODT SL; +PRED5 PO; +PREVYMIS480 MG PO; +PROGRAF1 M1 PO; +Phospha 250 Ne250 MG PO; +ROPI.25 PO
[2025-09-07] MEDS ORDERED: Lidocaine HCl 4% 5 ML SDA ONE (09:24)
[2025-09-07] MEDS ORDERED: NS 1,000 ML IV SCH (09:25)
[2025-09-07] MEDS ORDERED: ASPI81CH PO (09:39)
[2025-09-07] MEDS ORDERED: PANT20 PO (09:42)
[2025-09-07] MEDS ORDERED: SULTRIDS PO (09:43)
--- NOTE | 2025-09-07 11:01 | NUR ---
NEBULIZER OF 4% LIDOCAINE GIVEN PER DR HUNTER RUIZ AT BEDSIDE
[2025-09-07] MEDS ORDERED: Midazolam HCl 1MG / ML 2ML Vial ONE (12:51)
[2025-09-07] MEDS ORDERED: FentaNYL Citrate 50 MCG/ML 2 ML Injection ONE (12:51)
[2025-09-07] MEDS ORDERED: Midazolam HCl 1MG / ML 2ML Vial IV ONE (13:00)
--- NOTE | 2025-09-07 13:42 | NUR ---
09/07/25 1342 Shira Figeuroa LUNGS CLEAR T/O TO AUSCULTATION.History, Chart, Medications and Allergies reviewed before start of procedure.DR BEVERLY PROVIDING ANESTHESIA
--- NOTE | 2025-09-07 15:27 | NUR ---
1500: Patient up to Ambulate independently. Gait steady. Discharge instructions reviewed with patient. Patient verbalizes understanding. Copy given to patient to take home. Patient States Post-Procedure ride home has been arranged. Discharged via wheelchair to private car for ride home. Pt belongings returned to pt.
[2025-09-07 16:05] LABS: Rhinovirus+Enterovirus RNA Detected (NOT DETECT)
[2025-09-07 16:06] LABS: Acinetobacter baumannii DNA Not Detected copy/mL (NOT DETECT); Chlamydia pneumonia Not Detected (NOT DETECT); Enterobacter cloacae DNA Not Detected copy/mL (NOT DETECT); Escherichia coli DNA Not Detected copy/mL (NOT DETECT); Haemophilus influenzae DNA Not Detected copy/mL (NOT DETECT); Human Coronavirus RNA Not Detected (NOT DETECT); Human Metapneumovirus RNA Not Detected (NOT DETECT); Influenza virus A RNA Not Detected (NOT DETECT); Influenza virus B RNA Not Detected (NOT DETECT); Klebsiella aerogenes DNA Not Detected copy/mL (NOT DETECT); Klebsiella oxytoca DNA Not Detected copy/mL (NOT DETECT); Klebsiella pneumoniae DNA Not Detected copy/mL (NOT DETECT); Moraxella catarrhalis DNA Not Detected copy/mL (NOT DETECT); Proteus sp DNA Not Detected copy/mL (NOT DETECT); Pseudomonas aeruginosa DNA Not Detected copy/mL (NOT DETECT); Respiratory syncytial Vir RNA Not Detected (NOT DETECT); Serratia marcescens DNA Not Detected copy/mL (NOT DETECT); Staphylococcus aureus DNA Not Detected copy/mL (NOT DETECT); Streptococcus agalactiae DNA Not Detected copy/mL (NOT DETECT); Streptococcus pneumoniae DNA Not Detected copy/mL (NOT DETECT); Streptococcus pyogenes DNA Not Detected copy/mL (NOT DETECT)
[2025-09-27] MEDS ORDERED: PROGRAF0.5 M1 PO (16:15)
[2025-09-27] MEDS ORDERED: Aspir 8181 MG PO (19:23)
[2025-09-27] MEDS ORDERED: METO25 PO (19:24)
[2025-09-27] MEDS ORDERED: NIFE30ER PO (19:25)
[2025-09-27] MEDS ORDERED: PANT40 PO (19:29)
[2025-09-27] MEDS ORDERED: ZEBUTAL 50-3251 EA10 PO (19:30)
[2025-09-27] MEDS ORDERED: MELA3 PO (19:31)
[2025-10-02] MEDS ORDERED: HYDMOR2 PO (13:34)
[2025-10-02] MEDS ORDERED: HYDRA25 PO (13:35)
== END 2025-09-07 15:18 | disposition home or self-care (01) ==
LOC: ORSCMMR 09:12 → ORD 10:00 → ORSCMMR 15:18
PROVIDERS: Student in an Organized Health Care Education/Training Program
PROC: 0B9D8ZX Drainage of Right Middle Lung Lobe, Via Natural or Artificial Opening Endoscopic, Diagnostic (ICD-10-PCS; principal; 2025-09-07 10:00)
DX: J18.9 Pneumonia, unspecified organism (principal); E10.40 Type 1 diabetes mellitus with diabetic neuropathy, unspecified; Z79.4 Long term (current) use of insulin; Z79.899 Other long term (current) drug therapy; I12.0 Hypertensive chronic kidney disease with stage 5 chronic kidney disease or end stage renal disease; E10.22 Type 1 diabetes mellitus with diabetic chronic kidney disease; N18.6 End stage renal disease; J45.909 Unspecified asthma, uncomplicated
CPT/HCPCS: 0528U; 82947; 87070; 87102; 87106; 87205; 87252; 88108; 88312; J0169; J2003; J2250; J2704; J3010; J7030